=== PATIENT | female | born 1980 | race Caucasian/White ===

== ENCOUNTER 2020-12-16 07:38 | Emergency (ER) | payer OTHER ==
[~2020-12-16] VITALS: Ht 152.4 cm; Wt 81.2 kg
[~2020-12-16 07:38] MED LIST: BASAGLAR K100 UNIT/1; COZAAR100 MG PO; LANTUS SOL100 UNIT/1 SUB-Q; METFORMIN HCL500 MG PO; TOPROL XL50 MG PO
[2020-12-16] MEDS ORDERED: ATORVASTATIN CA40 MG PO (07:55)
[2020-12-16] MEDS ORDERED: AMLODIPINE BESY10 MG PO (08:45)
[2020-12-16] MEDS ORDERED: METOPROLOL SUC200 MG PO (08:46)
[2020-12-16] MEDS ORDERED: CHANTIX1 MG PO (08:48)
[2020-12-16] MEDS ORDERED: ONDANSETRON ODT8 MG PO (09:01)
[2020-12-16] MEDS ORDERED: MAGNESIUM250 MG PO (09:01)
== END 2020-12-16 09:32 | disposition home or self-care (01) ==
LOC: ED 07:38
DX: K52.9 Noninfective gastroenteritis and colitis, unspecified (principal); E83.42 Hypomagnesemia; I10 Essential (primary) hypertension; E11.9 Type 2 diabetes mellitus without complications; F17.200 Nicotine dependence, unspecified, uncomplicated; Z88.2 Allergy status to sulfonamides; Z88.1 Allergy status to other antibiotic agents; Z79.899 Other long term (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; Z79.4 Long term (current) use of insulin
CPT/HCPCS: 80053; 81001; 83735; 85025; 96374; 96375; 99284-25; J2405; J3475; J7030; U0003

== ENCOUNTER 2021-05-28 12:49 | Emergency (ER) | payer OTHER ==
[~2021-05-28] VITALS: Ht 152.4 cm; Wt 82.5 kg
[~2021-05-28 12:49] MED LIST changes: +AMLODIPINE BESY10 MG PO; +ATORVASTATIN CA40 MG PO; +CHANTIX1 MG PO; +MAGNESIUM250 MG PO; +METOPROLOL SUC200 MG PO; +ONDANSETRON ODT8 MG PO
--- OUTSIDE RECORDS SUMMARY | 2021-05-28 12:52 | XMS ---
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 EDaisy VISIT COUNT (12 MO.) 2 KATHRYN Conner TOTAL 2 NOTE: Visits indicate total known visits. 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
[2021-05-28] MEDS ORDERED: HYDROCODON-ACE1 EA11 PO (14:04)
[2021-05-28] MEDS ORDERED: CLEOCIN HCL300 MG PO (14:04)
== END 2021-05-28 14:02 | disposition home or self-care (01) ==
LOC: ED 12:49
DX: K04.7 Periapical abscess without sinus (principal); E11.65 Type 2 diabetes mellitus with hyperglycemia; I10 Essential (primary) hypertension; F17.200 Nicotine dependence, unspecified, uncomplicated; Z88.2 Allergy status to sulfonamides; Z88.1 Allergy status to other antibiotic agents
CPT/HCPCS: 99282; A9270

== ENCOUNTER 2021-08-23 15:33 | Emergency (ER) | payer OTHER ==
[~2021-08-23] VITALS: Ht 152.4 cm; Wt 82.5 kg
[~2021-08-23 15:33] MED LIST changes: +CLEOCIN HCL300 MG PO; +HYDROCODON-ACE1 EA11 PO
--- OUTSIDE RECORDS SUMMARY | 2021-08-23 15:36 | XMS ---
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 EDaisy VISIT COUNT (12 MO.) 3 KATHRYN Conner TOTAL 3 NOTE: Visits indicate total known visits. ED/UCC VISIT TRACKING (12 MO.) 08/23/2021 15:34 KATHRYN Banegas OR TYPE: Emergency COMPLAINT: - DIFF BREATHING, SHARP PAINS, DIZZY 05/28/2021 12:50 KATHRYN Banegas OR TYPE: Emergency COMPLAINT: - R SIDE MOUTH/EAR PAIN DIAGNOSES: - Periapical abscess without sinus - Other specified disorders of teeth and supporting structures - Allergy status to sulfonamides - Essential (primary) hypertension - Nicotine dependence, unspecified, uncomplicated - Allergy status to other antibiotic agents - Type 2 diabetes mellitus with hyperglycemia 12/16/2020 07:39 KATHRYN Banegas [place] TYPE: Emergency COMPLAINT: - NAUSEA, BODY ACHES DIAGNOSES: - Nicotine dependence, unspecified, uncomplicated - Allergy status to other antibiotic agents - Other group home (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 - Allergy status to sulfonamides - Diarrhea, unspecified - Essential (primary) hypertension - Hypomagnesemia - Type 2 diabetes mellitus without complications - Noninfective gastroenteritis and colitis, unspecified - halfway (current) use of insulin INPATIENT VISIT TRACKING (12 MO.) No inpatient visits to display in this time frame [id number]
[2021-08-23] MEDS ORDERED: INSULIN AS100 UNIT/3 SUB-Q (16:00)
[2021-08-23] MEDS ORDERED: BASAGLAR K100 UNIT/1 SUB-Q (16:00)
[2021-08-23] MEDS ORDERED: VENTOLIN HFA18 GM INH (16:01)
[2021-08-23] MEDS ORDERED: BENZONATATE100 MG PO (16:01)
[2021-08-23] MEDS ORDERED: PANTOPRAZOLE SO40 MG PO (16:02)
[2021-08-23] MEDS ORDERED: LOSARTAN-HCTZ1 EAC2 PO (16:02)
--- NOTE | 2021-08-23 22:32 | EKG ---
[facility] [address] [place], [place] [address] Signed Sinus tachycardia Anteroseptal infarct , age undetermined Abnormal ECG No previous ECGs available Confirmed by NATHALY ODONNELL MD ([id number]) on 08/23/2021 10:32:32 PM Electronically Signed By: NATHALY ODONNELL MD 08/23/212231 PATIENT NAME: JOSÉ MANUEL LUCAS Electrocardiogram DATE OF : 80 PHYSICIAN: NATHALY ODONNELL MD REPORT #: [id number] REPORT IS CONFIDENTIAL AND NOT TO BE RELEASED WITHOUT AUTHORIZATION
== END 2021-08-23 20:19 | disposition home or self-care (01) ==
LOC: ED 15:33
DX: B34.9 Viral infection, unspecified (principal); E86.0 Dehydration; R19.7 Diarrhea, unspecified; I10 Essential (primary) hypertension; E11.9 Type 2 diabetes mellitus without complications; F17.200 Nicotine dependence, unspecified, uncomplicated; Z20.822 Contact with and (suspected) exposure to COVID-19; Z88.2 Allergy status to sulfonamides; Z79.4 Long term (current) use of insulin; Z79.899 Other long term (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
CPT/HCPCS: 80053; 83880; 84484; 85025; 85379; 93005; 93010; 99285-25; C9803; J7030; U0003

== ENCOUNTER 2021-09-13 17:05 | Inpatient (IN) | payer OTHER ==
[~2021-09-13] VITALS: Ht 152.4 cm; Wt 82.9 kg
[~2021-09-13 17:05] MED LIST changes: +BASAGLAR K100 UNIT/1 SUB-Q; +BENZONATATE100 MG PO; +INSULIN AS100 UNIT/3 SUB-Q; +LOSARTAN-HCTZ1 EAC2 PO; +PANTOPRAZOLE SO40 MG PO; +VENTOLIN HFA18 GM INH
--- OUTSIDE RECORDS SUMMARY | 2021-09-13 17:06 | XMS ---
PreManage Notification: JOSÉ MANUEL LUCAS Security Lead Setter Events No recent Security Events currently on file CRITERIA MET - [facility] - [facility]its in 30 Days [facility] MARZENA BELTRE Nurse Practitioner: 08/24/2021-Current PHONE: [phone] Vanessa Ziegler Community Health Worker 03/13/2020-Current PHONE: [phone] Cesar has no Care Guidelines for this patient. E.D. VISIT COUNT (12 MO.) [address] [place] [address] TOTAL 4 NOTE: Visits indicate total known visits. 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 - Allergy status to sulfonamides - Type 2 diabetes mellitus without complications - Dehydration - Fever, unspecified - Diarrhea, unspecified - Viral infection, unspecified 05/28/2021 12:50 KATHRYN Banegas [place] TYPE: Emergency [...] status to other antibiotic agents - Other terminal operations supervisor (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 - Allergy status to sulfonamides - Diarrhea, unspecified - Essential (primary) hypertension - Hypomagnesemia - Type 2 diabetes mellitus without complications - Noninfective gastroenteritis and colitis, unspecified - [facility] (current) use of insulin INPATIENT VISIT TRACKING (12 MO.) No inpatient visits to display in this time frame [id number]
--- NOTE | 2021-09-13 23:07 | NUR ---
ON 3L NC, LUNGS COARSE AND W WHEEZING. NO SOB NOTED WITH EXERTION. C/O FEELING VERY ANXIOUS, DR BILLINGS NOTIFIED AT THIS TIME AND NEW ORDERS FOR HYDROXYZINE 25MG PO Q6HPRN, DC'D IV MAG RIDER PT STATED THAT IT GAVE HER A RASH IN THE PAST, CHANGED TO PO MAGNEIUM OXIDE 800MG X1. PT COOP WITH ADMIT ASSESSMENT RED HUED SKIN TO ARMS AND LE. SL PATENT
--- NOTE | 2021-09-13 23:48 | NUR ---
DR BILLINGS NOTIFIED VIA PHONE R/T PTS 408 CBG, SOLUMEDROL DOSAGE CLARIFIED. "START IN AM
--- NOTE | 2021-09-14 00:43 | NUR ---
On 3LNC, no distress, eyes closed, hob elevated, call light and lfuids at bedside, on aerosol precautions
--- NOTE | 2021-09-14 02:20 | NUR ---
RESATING, HOB ELEVATED, EYES CLOSED, O2 3LNC, CALL LIGHT AND FLUDIS AT BEDSIDE
--- NOTE | 2021-09-14 03:16 | NUR ---
coop with assessment, up to br, sob with exertion noted on return. O2 3LNC, lungs with insp and exp wheezing, increased resp rate too, back to bed and it took her a few seconds to recuperate. turns abd repositions self. voided large amounts of yellow urine, tolerating liquids well, no emesis
--- NOTE | 2021-09-14 05:46 | NUR ---
ON 3L NC. LUNGS WITH INSP/EXP WHEEZING, SOB WITH EXERTION PRESENT. DESSATED TO 85% ON RETURN FROM BR. SL PATENT, GETS SOLUMEDROM IV AND NEBS. TURNS AND REPOSITIONS SELF IN BED. VOIDING QS YELLOW URINE, NO BM SINCE ADMISSION. TOLERATING LARGE AMOUNTS OF FLUIDS. NO EMESIS. WAS C/O ANXIETY ON ADMIT RECEIVED HYDROXYZINE 25MG PO, EFFECTIVE, RECEIVED 2 DOSES OF K+ 30MeQ , AND MAGNESIUM OXIDE 800MG PO X1. PT HAS BEEN COOPERATIVE, ALERT AND ORIENTED. USES CALL LIGHT, ON AEROSOL PRECAUTIONS
--- NOTE | 2021-09-14 07:30 | NUR ---
REPORT RECIEVED FROM EMELIA ROTIZ. PT ASLEEP LAYING ON HER SIDE.
--- NOTE | 2021-09-14 08:38 | NUR ---
PT SITTING UP IN CHAIR EATING BREAKFAST. PRETTY SOB WITH EATING. 89% ON 3LNC. WILL PUT BUBBLER ON FOR HUMIDIFICATION. PT STATES SHE HAS NEVER HAD LUNG PROBLEMS BEFORE. WOULD LIKE TO BE TESTED FOR COVID AGAIN SHE BELIEVES IT MAY BE FALSE NEGATIVE.
--- NOTE | 2021-09-14 09:10 | NUR ---
PT LUNG SOUNDS COARSE, CRACKLES AND WHEEZY THROUGHOUT. HACKING COUGH. TIRED AND SOB WITH ANY EXERCTION.
--- NOTE | 2021-09-14 09:23 | NUR ---
RAPID COVID TEST DONE PER DR ORDER. COVID TEST COLLECTED FROM BOTH NARES W/O ISSUE. PT TOLERATED WELL.
--- NOTE | 2021-09-14 10:48 | NUR ---
Patient vitals I&Os are complete. Call light is in reach. Patient's resperations were 28. Patient was encouraged to relax and take deep breaths. RN will be notified.
--- NOTE | 2021-09-14 11:38 | NUR ---
ADMINISTERED JOY WANG AND INFORMED PT COVID TEST WAS NEG AGAIN. SHE STATES THAT SHE AGAIN DOES NOT BELIEVE IT.
--- NOTE | 2021-09-14 11:39 | NUR ---
Patient recieved a warm blanket and a warm wash cloth. Patient was active in washing her face and putting on deoderant. Patient said she is nervous about moving from the chair to the bathroom and back because of her oxygen level. Patient has been focusing on taking deep breaths.
--- NOTE | 2021-09-14 11:42 | NUR ---
Patient said she may want to take a shower today and said her friend will be dropping off some clean clothes to her today. Supplies will be set up for a shower in case she wants a shower. Patient was encouraged to call MANAGER PROGRAM MANAGEMENT when she is ready for SBA.
--- NOTE | 2021-09-14 12:28 | NUR ---
Shower supplies was set up in the room. 2 RNs and 1 Respiratory professional is in the room.
--- NOTE | 2021-09-14 13:44 | NUR ---
Patient said she is okay without the shower for now and wants to focus on her breathing and keeping her oxygen level up instead. She also said that her friend will be her in a couple of hours. Call light is in reach.
--- NOTE | 2021-09-14 13:53 | NUR ---
Call light is in reach. Patient is comfortable.
--- NOTE | 2021-09-14 13:58 | NUR ---
PT LAYING IN BED, RESTING ON R SIDE. PT IS ALERT, ORIENTED AND PLEASANT. PT STATED SHE WOULD LIKE TO SLEEP-HASN'T BEEN ABLE TO. COVID TEST NEG-PT SEEMED PLEASED. HAS FAMILY COMING FOR T.GIVING AND WAS DECORATING HOME. PT REQUESTED PRAYER, GAVE G.POST AND BLESSING. WILL FOLLOW
--- NOTE | 2021-09-14 14:54 | NUR ---
Patient denies questions or concerns at this time. Patient plans to discharge home with adult friend and six year old son. She has an adult son in town that also can assist her with her home care needs. She expresses no concerns for obtaining medications, food, or other home care needs.
--- NOTE | 2021-09-14 16:11 | NUR ---
PT TURNED UP TO 5LNC TO KEEP SATS IN THE 90'S. PT STATES SHE FEELS HORRIBLE AND FEELS EXTREMELY SOB JUST SITTING IN BED. EXPLAINED PRONING AND SIDE LAYING AND PT AGREED TO DO IT.
--- NOTE | 2021-09-14 18:11 | NUR ---
Patient is on her side in bed. Patient is comfortable. Call light is in reach.
--- NOTE | 2021-09-14 19:35 | NUR ---
REPORT RECEIVED FROM EMELIA ZURITA. pt RESTING IN BED. 5L OXYGEN BY NC IN PLACE.
--- NOTE | 2021-09-14 21:09 | NUR ---
pt RESTING IN BED, COUGHING. UP TO RESTROOM INDEPENDENTLY. PER pt, SPO2 88% ON 5L OXYGEN BY NC WHEN BACK TO BED. URINE HAT EMPTIED. ASSESSMENT COMPLETE. EXPIRATORY WHEEZES THROUGHOUT LUNG LOBES. 5L OXYGEN BY NC IN PLACE. PRN COUGH MEDICATION ADMINISTERED, PRN ANXIETY MEDICATION ADMINISTERED REQUESTED. CALL LIGHT IN REACH. NO ADDITIONAL REQUESTS.
--- NOTE | 2021-09-14 22:02 | NUR ---
IN pt ROOM FOR MEDICATION ADMINISTRATION. pt STATES KING IS STILL THERE "IT WON'T GO AWAY". ICE WATER REFILLED AND IN REACH. SCHEDULED MEDICATION ADMINISTERED. CALL LIGHT IN REACH.
--- NOTE | 2021-09-15 00:32 | NUR ---
CHECKED ON pt. RESTING IN BED. NO DISTRESS NOTED.
--- NOTE | 2021-09-15 02:40 | NUR ---
pt RESTING IN BED. LIGHTS OFF IN ROOM. NO DISTRESS NOTED.
--- NOTE | 2021-09-15 06:05 | NUR ---
pt AWAKE RESTING IN BED. VSS. 5L OXYGEN BY NC IN PLACE. SPO2 WNL. LUNG SOUNDS DIMINISHED, pt STATES FEELS TIGHT, EXPIRATORY WHEEZES AUSCULTATED. pt REFUSES PRN NEB TREATMENT OFFERED. DENIES NEED FOR PRN COUGH MEDICATION. C/O KING. PRN PAIN MEDICATION ADMINISTERED. CALL LIGHT IN REACH. ICE WATER PROVIDED.
--- NOTE | 2021-09-15 07:10 | NUR ---
Report received from Kallie KAPOOR. Pt resting in bed with no needs at this time, will continue plan of care
--- NOTE | 2021-09-15 07:45 | NUR ---
PT INDEPENDANT IN THE ROOM. PT UP TO CHAIR. WARM BLANKET AND COFFEE GIVEN. BATHROOM SET UP FOR A SHOWER LATER. CALL LIGHT WITHIN REACH. WHITE BOARD UPDATED. NO FURTHER NEEDS AT THIS TIME.
--- NOTE | 2021-09-15 12:30 | NUR ---
Scheduled medications administered, CBG checked at at 397, MD notified. SS and scheduled insulin administered per order.
--- NOTE | 2021-09-15 12:43 | NUR ---
PT SITTING UP IN CHAIR-ALERT, ORIENTED AND EATING LUNCH. LET PT CONTINUE HER LUNCH. PT STATED SHE DOESN'T REALLY FEEL MUCH BETTER. GAVE ENCOURAGEMENT AND BLESSING. WILL CONTINUE TO FOLLOW
--- NOTE | 2021-09-15 13:38 | NUR ---
PATIENT IN CHAIR WATCHING TV. VITALS AND I&O'S CHARTED. CALL LIGHT IN REACH. NO FURTHER NEEDS AT THIS TIME.
--- NOTE | 2021-09-15 14:30 | NUR ---
Meds administered, pt resting in bed, talking with CM Keesha. Continues to have dry cough, denies PRN cough medication as she would "like to cough everything up and out". on 5L O2 NC tolerating well. No further needs at this time
--- NOTE | 2021-09-15 15:23 | NUR ---
Spoke with Ana. She cont. on oxygen and sounds congested. States son and family had covid 2 weeks ago as well as several people she works with at [employer]. Covid test was negative. Complaint of headache. Lives with friend and son will assist her when she is discharged if needed. Discussed may need 02 on dc and she would like either [facility] or [facility] for 02. Denies other needs.
[2021-09-15] MEDS ORDERED: AMLODIPINE BESYL5 MG PO (16:23)
--- NOTE | 2021-09-15 17:00 | NUR ---
Meds administered, pt resting in bed after eating, no needs at this time
[2021-09-15] MEDS ORDERED: PANTOPRAZOLE SO40 MG PO (17:34)
--- NOTE | 2021-09-15 17:36 | NUR ---
Medications reconciled using pharmacy records and patient interview
--- NOTE | 2021-09-15 19:25 | NUR ---
REPORT RECEIVED FROM EMELIA CASTELLANOS. pt RESTING IN BED, LIGHTS OFF IN ROOM. NO REQUESTS AT THIS TIME.
--- NOTE | 2021-09-15 19:58 | NUR ---
CALL LIGHT ANSWERED. pt COMPLAINS OF KING PAIN, "THE MEDICATIONS DID NOT WORK". REQUESTING ADDITIONAL MEDICATION. PHONE CALL TO MD. LIN TO PLACE ORDER.
--- NOTE | 2021-09-15 20:55 | NUR ---
V/S AND I&O DONE. BLOOD SUGAR CHECKED. ICE WATER REFILLED. EMPTIED HAT WITH 200ML VOIDINGS.
--- NOTE | 2021-09-15 21:07 | NUR ---
PRN PAIN MEDICATION ADMINSITERED FOR 8/ REPORTED HEADACHE. SCHEDULED MEDICATIONS ADMINISTERED. ASSESSMENT COMPLETE. EXPIRATORY WHEEZES AUSCULTATED, COARSENESS UPPER LOBES BILATERALLY. URINE EMPTIED. VSS. 5L OXYGEN BY NC IN PLACE. ICE WATER AND WARM BLANKET PROVIDED. CALL LIGHT IN REACH.
--- NOTE | 2021-09-15 23:09 | NUR ---
CHECKED ON pt. RESTING IN BED ON LEFT SIDE. BREATHING UNLABORED. 5L OXYGEN BY NC IN PLACE. NO DISTRESS NOTED.
--- NOTE | 2021-09-16 01:51 | NUR ---
pt LYING IN BED ON LEFT SIDE. BREATHING UNLABORED. NO DISTRESS NOTED.
--- NOTE | 2021-09-16 03:00 | NUR ---
pt RESTING IN BED. LIGHTS OFF IN ROOM. NO DISTRESS NOTED.
--- NOTE | 2021-09-16 06:15 | NUR ---
PT LYING IN BED ON RIGHT SIDE COUGHING. COMPLAINS OF 7/10 KING. PRN PAIN MEDICATIONS ADMINISTERED. ASSESSMENT COMPLETE. EXPIRATORY WHEEZES THROUGHOUT LUNG LOBES, COARSENESS LEFT LOWER LUNG LOBE. pt DENIES BREATHING TREATMENT. STATES "NOT YET, I DON'T WANT TO MAKE MY KING WORSE." SPO2 93% WITH 5L OXYGEN BY NC IN PLACE. URINE EMPTIED. UP TO BSC FOR VOID AND BACK TO BED. COOL CLOTH PROVIDED FOR FOREHEAD. LIGHTS OFF IN ROOM.
--- NOTE | 2021-09-16 07:16 | NUR ---
Report received from Kallie KAPOOR. Pt resting in bed, no needs at this time. Call light in reach. Will continue plan of care
--- NOTE | 2021-09-16 08:00 | NUR ---
CBG checked, >300, pt states continuing to have 8/10 headache pain. She is concerned that her lungs "feel worse" and SOB with exertion, states anxious regarding current illness. Discussed plan of care, will return with medications
--- NOTE | 2021-09-16 08:30 | NUR ---
SS insulin and scheduled medications administered along with nicotine lozenge, PRN vistaril. PRN toradol/tylenol not currently available. Hot pack provided to attempt to relieve headache pain, ice pack not effective per pt. Pt remains on 5L O2 with SPO2 >92%. Discussed with patient plan of care, ABX, pain control. Water refreshed, call light in reach
--- NOTE | 2021-09-16 08:47 | NUR ---
PT O2 WAS 92 ON 5L NC BEFORE UP TO RESTROOM AND IS CURRENTLY 82 ON 5L NC WHILE GETTING BACK TO CHAIR. EMELIA CASTELLANOS NOTIFIED. O2 MAIRA BACK UP TO 93 WITHIN 20 SECONDS OF SITTING IN CHAIR.
--- NOTE | 2021-09-16 09:00 | NUR ---
Pt to CT
--- NOTE | 2021-09-16 09:05 | NUR ---
PT SEEMS TO BE DOING A LITTLE BETTER. PT HAS NOT COUGHED YET WHILE THIS MANAGER MATH HAS BEEN IN THE ROOM. PT NOW GETTING LABS DRAWN. CALL LIGHT WITHIN REACH, NO FURTHER NEEDS AT THIS TIME. FRESH WATER BROUGHT
--- NOTE | 2021-09-16 10:00 | NUR ---
Pt provided with PRN tylenol for 07/17 headache
--- NOTE | 2021-09-16 12:30 | NUR ---
Scheduled medications administered, IV ABX infusing WNL, pt c/o pain and lights dimmed, cool cloth given.
--- NOTE | 2021-09-16 12:50 | NUR ---
Spoke with Ana, she is not feeling well. Sitting with ice pack on her head and c/o severe headache. Pt is near tears. Denies need to notify nurse as she is aware and it is not time for pain meds.
--- NOTE | 2021-09-16 13:11 | NUR ---
PT SITTING UP IN CHAIR, WATCHING TV, O2 NC IN USE. PT SAID SHE SLEPT WELL, BUT WOKE UP AND TODAY SO FAR HAS BEEN DIFFICULT. GAVE ENCOURAGEMENT, RIVKA AND HAD PRAYER WITH PT. WILL FOLLOW
--- NOTE | 2021-09-16 13:35 | NUR ---
Rounded on patient who is sitting up in chair and watching tv. States no immediate needs. On 5L O2 NC. Lunch tray cleared. Call light in reach
--- NOTE | 2021-09-16 13:58 | NUR ---
PT SITTING IN CHAIR. PT JUST FINISHED DOING AN INDEPENDENT BB. FRESH HOT PACK AND COFFEE BROUGHT. CALL LIGHT WITHIN REACH, NO FURTHER NEEDS AT THIS TIME.
--- NOTE | 2021-09-16 15:00 | NUR ---
IV magnesium infusing WNL. 10mg PRN oxycodone administered for 9/10 headache pain. Pt states no further needs at this time, son Alberto at bedside
--- NOTE | 2021-09-16 16:25 | NUR ---
sputum sample collected sent to in-house lab, rapid pcr sent to inhouse lab, as well as senmd out swab for various viral panel.
--- NOTE | 2021-09-16 17:53 | NUR ---
PT SEEMS TO BE DOING BETTER. PT AGREES THAT THEY ARE FEELING BETTER. PT IMPATIENTLY AWAITING DINNER. CALL LIGHT WITHIN REACH, NO FURTHER NEEDS AT THIS TIME
--- NOTE | 2021-09-16 19:56 | NUR ---
RECEIVED REPORT FROM DAY SHIFT RN. PATIENT IS RESTING IN BED. PATIENT DENIES ANY NEEDS. CALL LIGHT IN REACH.
--- NOTE | 2021-09-16 21:38 | NUR ---
PATIENT ASSESMENT COMPLETED. PATIENTS SCHEDULED MEDICATIONS GIVEN PER ORDER. PATIENT REPORTS KING AT 8/10 AND PRN MEDICATION GIVEN PER ORDER. PATIENTS IV FLUSHED AND SL. PATIENT REMAINS ON 5L VIA NC. PATIENT DENIES ANY FURTHER NEEDS. CALL LIGHT IN REACH.
--- NOTE | 2021-09-16 23:34 | NUR ---
PATIENT IS RESTING IN BED ON PHONE. PATIENT DENIES ANY NEEDS. CALL LIGHT IN REACH.
--- NOTE | 2021-09-17 02:03 | NUR ---
PATIENT IS RESTING IN BED WITH EYES CLOSED, RR 19. CALL LIGHT IN REACH.
--- NOTE | 2021-09-17 04:12 | NUR ---
PATIENT IS RESTING IN BED WITH EYES CLOSED, RR 16. CALL LIGHT IN REACH.
--- NOTE | 2021-09-17 06:25 | NUR ---
VITALS TAKEN AND RECORDED. PATIENT DENIES A HEADACHE AT THIS TIME. ICE WATER REFILLED. PATIENT TITRATED TO 4L VIA NC. PATIENT DENIES ANY NEEDS. CALL LIGHT IN REACH.
--- NOTE | 2021-09-17 08:00 | NUR ---
Report received from EMELIA Stack, pt resting in bed safely w/ call light in reach and eyes closed, RR even and unlabored on 4L O2 via NC.
--- NOTE | 2021-09-17 10:00 | NUR ---
Pt sitting up in bed w/ call light in reach. Morning assesment complete and scheduled meds given per provider orders. Pt denies any needs at this time VSS on 4L O2 via NC
--- NOTE | 2021-09-17 12:00 | NUR ---
Pt sitting up in chair w/ call light in reach, eating lunch, no needs at this time.
--- NOTE | 2021-09-17 12:10 | NUR ---
Spoke with Ana. She states she plans on dc home when feeling better. Cont. to not feel well and requires nebulizer tx and 024l. Pt asks for paper and pen as she wants to make a list for Thanksgiving dinner.
--- NOTE | 2021-09-17 13:52 | NUR ---
PT SITTING IN CHAIR-O2 NC IN USE. PT HASN'T BEEN ABLE TO REST MUCH-GAVE BLESSING AND WILL LET HER REST. WILL CONTINUE TO FOLLOW
--- NOTE | 2021-09-17 14:00 | NUR ---
Pt sitting up in chair talking with case management, no needs at this time, call light w/ in reach.
--- NOTE | 2021-09-17 16:00 | NUR ---
Pt sitting up in chair w/ call light in reach. Pt denies any needs at this time, O2 sats 95% on 4L
--- NOTE | 2021-09-17 19:10 | NUR ---
SHIFT REPORT RECEIVED FROM DAYSHIFT EMELIA AUSTIN AT BEDSIDE, pt AWAKE AND RESTING IN BED. TITRATED FROM 4 TO 3LNC, SPO2 SUSTAINING IN MID TO UPPER 90'S, NO DISTRESS NOTED. pt DENIES ADDITIONAL NEEDS AFTER FRESH WATER WAS PROVIDED. CALL LIGHT IN REACH AND BOARD UPDATED.
--- NOTE | 2021-09-17 21:40 | NUR ---
IN TO GET VITALS, ICE WATER FILLED, NO FURTHER NEEDS AT THIS TIME
--- NOTE | 2021-09-17 22:04 | NUR ---
ASSESSMENT COMPELTE, SCHEDULED MEDS GIVEN (SEE EMAR). pt A/OX4, VSS. pt REMAINS ON 3LNC, SPO2 WNL. pt RESTING IN BED, AWAKE. RR EVEN AND UNLABORED. pt DENIES PAIN AND NAUSEA. PRN ANXIETY MEDICATION ALSO PROVIDED, SEE EMAR. NO FURTHER NEEDS, CALL LIGHT IN REACH. pt INDEPENDENT IN ROOM.
--- NOTE | 2021-09-17 22:23 | NUR ---
SCHEDULED MED PROVIDED. IV WNL, FLUSHED WELL. NO OTHER NEEDS. CALL LIGHT IN REACH.
--- NOTE | 2021-09-18 01:07 | NUR ---
pt RESTING IN BED, EYES CLOSED. RR EVEN AND UNLABORED. pt REMAINS ON 3LNC, SPO2 CHECKED WITH RESULT OF 94%, HR IN UPPER 50'S. NO NEEDS VERBALIZED, CALL LIGHT IN REACH.
--- NOTE | 2021-09-18 04:01 | NUR ---
pt RESTING IN BED WITH EYES CLOSED, RR EVEN AND UNLABORED. 3LNC IN PLACE WITH HUMIDIFICATION, NO DISTRESS NOTED. pt APPEARS COMFORTABLE AND RELAXED, WILL CONTINUE TO MONITOR. CALL LIGHT IN REACH.
--- NOTE | 2021-09-18 05:34 | NUR ---
ASSESSMENT COMPLETE, NO ACUTE CHANGES. pt A/OX4, RATES PAIN TOLERABLE 6/10 R/T HEADACHE. DENIES NEED FOR PAIN MEDICATION AT THIS TIME, WILL MONITOR. pt TITRATED FROM 3LNC TO 2LNC, SPO2 SUSTAINING AT 93-94%. NO ADDITIONAL NEEDS, CALL LIGHT IN REACH.
--- NOTE | 2021-09-18 08:00 | NUR ---
Shift report recieved from EMELIA Reinoso, pt resting safely in bed w/ call light in reach and eyes closed, RR even and unlabored on 2L O2 via NC.
--- NOTE | 2021-09-18 10:00 | NUR ---
Pt sitting up in chair eating breakfast w/ call light in reach. Morning assesment complete, scheduled meds given, and IV abx infusing per provider orders. Pt denies any further needs at this time
[2021-09-18] MEDS ORDERED: LEVOFLOXACIN750 MG PO (10:16)
[2021-09-18] MEDS ORDERED: PREDNISONE20 MG PO (10:19)
--- NOTE | 2021-09-18 12:10 | NUR ---
PT IS SITTING IN CHAIR, DRESSED IN HER CLOTHES AND HAD HER PERSONAL BELONGINGS ALL BAGGED. SHE IS REALLY READY FOR DC. NO O2 NC IN USE. GAVE BLESSING WILL FOLLOW NEEDED
== END 2021-09-18 11:25 | disposition home or self-care (01) | DRG 193 ==
LOC: ED 17:05 → MS 17:06
PROVIDERS: ADMIT Internal Medicine; ATTEND Internal Medicine
DX: J12.9 Viral pneumonia, unspecified (principal); J96.01 Acute respiratory failure with hypoxia; J44.1 Chronic obstructive pulmonary disease with (acute) exacerbation; J44.0 Chronic obstructive pulmonary disease with (acute) lower respiratory infection; Z20.822 Contact with and (suspected) exposure to COVID-19; J01.10 Acute frontal sinusitis, unspecified; R91.8 Other nonspecific abnormal finding of lung field; E11.65 Type 2 diabetes mellitus with hyperglycemia; I10 Essential (primary) hypertension; F17.290 Nicotine dependence, other tobacco product, uncomplicated; E78.5 Hyperlipidemia, unspecified; Z88.2 Allergy status to sulfonamides; Z88.1 Allergy status to other antibiotic agents; Z90.710 Acquired absence of both cervix and uterus; Z90.49 Acquired absence of other specified parts of digestive tract; Z79.4 Long term (current) use of insulin; Z79.899 Other long term (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
CPT/HCPCS: 70450; 71045; 71046; 71260; 80048; 80053; 83036; 83735; 83880; 84703; 85007; 85025; 85651; 87040; 87070; 87205; 94640; 94667; 94668; 94760; 94761; 96372; 96376; 99285-25; A9270; C9803; G0378; J0696; J1650; J1815; J1885; J2550; J2920; J2930; J3475; Q0177; Q9967; U0003

== ENCOUNTER 2022-12-07 08:24 | Emergency (ER) | payer OTHER ==
[~2022-12-07] VITALS: Ht 152.4 cm; Wt 80.7 kg
[~2022-12-07 08:24] MED LIST changes: +AMLODIPINE BESYL5 MG PO; +GABAPENTIN600 MG PO; +LEVOFLOXACIN750 MG PO; +PREDNISONE20 MG PO
--- OUTSIDE RECORDS SUMMARY | 2022-12-07 08:27 | XMS ---
PreManage Notification: JOSÉ MANUEL LUCAS Security Rn Cardiac Rehab Events No recent Security Events currently on file CRITERIA MET - [facility] PROVID[facility] DORIS LUCASQUELINE Physician Leveler 09/14/2021-Current PHONE: Unknown Tricia Gonzales-Casey Nurse Practitioner: 08/24/2021-Current PHONE: [phone] Vanessa Ziegler Community Health Worker 03/13/2020-Current PHONE: [phone] Cesar has no Care Guidelines for this patient. E.D. VISIT COUNT (12 MO.) 1 KATHRYN Conner TOTAL 1 NOTE: Visits indicate total known visits. ED/UCC VISIT TRACKING (12 MO.) 12/07/2022 08:25 KATHRYN Banegas [place] TYPE: Emergency COMPLAINT: - SOB, CONGESTION INPATIENT VISIT TRACKING (12 MO.) No inpatient visits to display in this time frame [email or web address]
[2022-12-07] MEDS ORDERED: ZITHROMAX250 MG PO (11:31)
[2022-12-07] MEDS ORDERED: DIFLUCAN150 MG PO (11:35)
== END 2022-12-07 11:50 | disposition home or self-care (01) ==
LOC: ED 08:24
DX: J06.9 Acute upper respiratory infection, unspecified (principal); J45.909 Unspecified asthma, uncomplicated; I10 Essential (primary) hypertension; E11.9 Type 2 diabetes mellitus without complications; F17.200 Nicotine dependence, unspecified, uncomplicated; Z88.2 Allergy status to sulfonamides; Z79.899 Other long term (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; Z79.4 Long term (current) use of insulin; Z20.822 Contact with and (suspected) exposure to COVID-19
CPT/HCPCS: 71045; 87502; 94640; 94664; 99284-25; U0003

== ENCOUNTER 2023-11-29 10:30 | Inpatient (IN) | payer OTHER ==
[~2023-11-29] VITALS: Ht 152.4 cm; Wt 74.1 kg
[2023-11-29] VITALS (9 sets, daily range): BP systolic 132–150; BP diastolic 72–91
[~2023-11-29 10:30] MED LIST changes: -AMLODIPINE BESYL5 MG PO; +DIFLUCAN150 MG PO; +ZITHROMAX250 MG PO
[2023-11-29 11:07] LABS: BILIRUBIN, URINE POSITIVE (negative); BLOOD/HGB, URINE NEGATIVE (Negative); KETONE, URINE NEGATIVE (Negative); LEUK ESTERASE, URINE NEGATIVE (negative); NITRITE, URINE NEGATIVE (negative)
[2023-11-29 11:17] LABS: BACTERIA, URINE 1+ /hpf (negative); CASTS, URINE NONE SEEN \\lpf; CRYSTALS, URINE NONE SEEN (0-1+); EPITHELIAL CELLS, URINE SQUAMOUS 2+ /lpf (0-1+); RED BLOOD CELLS, URINE 0-1 /hpf (0-5); REFLEX CULTURE, URINE No (No); WHITE BLOOD CELLS, URINE 0-1 /HPF (0-5)
[2023-11-29 11:17] LABS: BASOPHILS 0.9 % (0-2); HEMOGLOBIN 16.6 g/dL (12.0-18.0); LYMPHOCYTES 19.4 % (24-44); MCH 31.8 (27-36); MCHC 35.3 g/dl (30-36); MCV 90.1 fl (81-99); MONOCYTES 7.4 % (0-12); NEUTROPHILS 70.3 % (39-80); PLATELET COUNT 226 K/uL (140-440); RBC 5.22 M/ul (4.3-5.7); RDW 13.1 (10.5-15.0)
[2023-11-29 11:18] LABS: COLLECTION TYPE, URINE CLEAN CATCH
[2023-11-29 11:36] LABS: ALBUMIN 4.1 g/dL (3.4-5.0); ALBUMIN/GLOBULIN RATIO 1.11 (1.1-2.4); ANION GAP 12.9 (7-21); BILIRUBIN, TOTAL 0.6 ng/dL (0.2-1.0); BUN/CREATININE RATIO 20.2 (6.0-28.6); CALCIUM 9.5 mg/dL (8.5-10.1); CREATININE, SERUM 0.99 mg/dL (0.55-1.02); POTASSIUM 2.9 mmol/L (3.5-5.1); PROTEIN, TOTAL 7.8 g/dL (6.4-8.2)
--- NOTE | 2023-11-29 14:00 | NUR ---
43 YEAR OLD FEMALE PATIENT ADMITTED TO ROOM 128 HOUSE CONVENIENCE PATEINT WITH DX OF ETOH ABUSE, POSSIBLE ETOH WITHDRAWAL, LYTE INBALANCE, N/V/D. REPORT RECEIVED FROM ED RN. UPON ADMIT PATIENT IS DROWSY BUT ALERT AND COOPERATIVE. C/O KING. STATES SHE HAS HAD A KING FOR SEVERAL WEEKS. SHE WAS DX WITH FLU A+ ON 11/16/23. HAS HAD OCC PORDUCTIVE COUGH. LUNGS DIM. DENIES CHEST PAIN. C/O MID UPPER EPIGASTRIC PAIN, WITH DIFFUE ABD PAIN WITH PALPATION. PT IS A CURRENT EVERY HARD ALCOHOL DRINKER OF 12-14 SHOTS Q DAY. PATIENT HAS BEEN WITH N/V/D FOR THE PAST 3 WEEKS. HX OF DM 2,HTN,HYSTERECTOMY, CHOLEY. IVF INFUSING. ADMISSION PROCESS STARTED.
--- NOTE | 2023-11-29 15:30 | NUR ---
Spoke briefly with Ana. She is very sleepy, but agrees to answer questions. She lives with her SO and her 9 yo son in [place]. She works at [employer] and drives. She does not use any DME. Per H&P pt drinks 13-14 shots per day. She does not respond when I ask if she is interested in stopping alcohol use. Pt denies financial issues. Will follow up with pt tomorrow for further needs when she is not so sleepy.
--- NOTE | 2023-11-29 15:42 | NUR ---
PATIENT IS CALM AND RESTING. LABS DRAWN.
--- NOTE | 2023-11-29 15:48 | NUR ---
DR. BLANCO CALLED TO CLARIFY SOME ORDERS. LABS TO BE DRAWN.
[2023-11-29 15:54] LABS: ANION GAP 12.1 (7-21); BUN/CREATININE RATIO 23.07 (6.0-28.6); CALCIUM 8.2 mg/dL (8.5-10.1); CREATININE, SERUM 0.78 mg/dL (0.55-1.02); MAGNESIUM 1.7 mg/dL (1.8-2.4); POTASSIUM 3.1 mmol/L (3.5-5.1)
--- NOTE | 2023-11-29 16:20 | NUR ---
Michael GRIFFIN RN, UPDATED DR. GARCIA ON CURRENT LAB VALUES, ORDERS RECEIVED TO GIVEN KCL 40 MEQ IV AND MAG 2 GM IV. PATIENT REMAINS CALM AND SLEEPY, DENIES CURRENT NEEDS. RESP ARE EQUAL AND NON-LABORED, CALL LIGHT IS WITHIN REACH.
--- NOTE | 2023-11-29 17:50 | NUR ---
AWAKE, FACE FLUSHED. OOT TO COMMODE TO VOID AND HAVE SMALL LIQUID STOOL. PATIENT IS STABLE ON FEET WITH TRANSFER TO COMMODE AND BACK TO BED. PATIENT STATES SHE FEEL ANXIOUS, NAUSEATED AND HAS A KING. RATES KING 05/16. PATEINT STATES ORA MAYBE IF SHE TRIES TO EAT SOMETHING SHE WILL FEEL BETTER.
--- NOTE | 2023-11-29 18:08 | NUR ---
ATIVAN 1 MG IV GIVEN. PATIENT IS SITTING UP IN BED ATTEMPTING TO EAT FEW BITES OF DINNER.
--- NOTE | 2023-11-29 18:44 | NUR ---
TOOK DINNER WELL. PATIENT CONTINUES WITH KING, ANXIETY AND AGITATION. ATIVAN 1 MG IV REPEATED.
--- NOTE | 2023-11-29 19:36 | NUR ---
RECEIVED REPORT FROM DAY SHIFT RN. PATIENT IS RESTING IN BED WITH EYES CLOSED, RR 18. IV INFUSING PER ORDER. CALL LIGHT IN REACH.
--- NOTE | 2023-11-29 20:18 | NUR ---
ATIVAN DRAWN FOR GISEL, DOLORES RN AND RASHAUN RN, WITNESSED WASTE OF 1MG AND ADMINISTERED 1MG, IN PYXIS THIS RN WASTE SECOND TIME, APPEARS ENTIRE VIAL WAS WASTED. DOCUMENTED APPROPRIATELY IN EMAR.
--- NOTE | 2023-11-29 20:45 | NUR ---
PATIENT ASSESMENT COMPLETED. PATIENT IS DROWSY BUT AWAKENS AND ANSWERS ALL QUESTIONS APPROPRIATELY. PATIENT IS AAOX4. PATIENTS CIWA IS NOTED TO BE 4 AND NO INTERVENTION AT THIS TIME PER PROTOCOL. PATIENTS BS AND SS ADMINISTERED PER ORDER. PATIENTS IV INFUSING PER ORDER. PATIENT REPORTS NAUSEA, PRN MEDS GIVEN PER ORDER. PATIENT DENIES ANY PAIN. PATIENT REPORTS A HEADACHE. PATIENT OFFERED INTERVENTION, PATIENT DENIES THE NEED. COOL WASH RAG PLACED ON PATIENTS FOREHEAD. PATIENT OFFERED BR, PATIENT DENIES THE NEED. PATIENTS LIGHTS IN ROOM TURNED DOWN. PATIENT DENIES ANY FURTHER NEEDS. CALL LIGHT AND BELONGINGS ARE WITHIN REACH.
--- NOTE | 2023-11-29 21:21 | NUR ---
PATIENT UP TO BSC A SBA. PATIENT REPORTS BEING SWEATY, NAUSEOUS, AND DIZZT WHEN UP. PATIENT ABLE TO VOID AND HAD SCANT BM. PATIENT IS BACK IN BED RESTING. PATIENT IS NOTED TO BE CLAMMY AND REPORTS A WORSENING HEADACHE. PATIENTS CIWA IS NOTED TO BE A 9. PATIENT GIVEN PRN MED PER PROTOCOL. PATIENT DENIES ANY FURTHER NEEDS. CALL LIGHT IN REACH. PATIENT REMAINS ON 2L VIA [place].
--- NOTE | 2023-11-29 22:35 | NUR ---
PATIENT IS RESTING IN BED WITH EYES CLOSED, RR 18. PATIENT APPEARS TO BE COMFORTABLE. CALL LIGHT IN REACH.
--- NOTE | 2023-11-29 23:28 | NUR ---
PATIENT REPORTS HEADACHE 05/16, PRN MEDCATION GIVEN PER ORDER. PATIENT STATED "I AM FIGHTING THE URGE TO DRINK". PATIENTS CIWA NOTED TO BE 10, PRN MEDICATION GIVEN PER PROTOCOL. PATIENT DENIES ANY NAUSEA. PATIENT GIVEN CRACKERS PER REQUEST. PATIENT DENIES ANY FURTHER NEEDS. CALL LIGHT IN REACH. BED ALARM ON FOR SAFETY.
[2023-11-30] VITALS (15 sets, daily range): BP systolic 122–167; BP diastolic 57–105
--- NOTE | 2023-11-30 01:05 | NUR ---
PATIENT IS RESTING IN BED WITH EYES CLOSED, RR 22. PATIENT APPEARS TO BE RESTING COMFORTABLE. CALL LIGHT IN REACH. BED ALARM ON FOR SAFETY.
--- NOTE | 2023-11-30 01:44 | NUR ---
PATIENT NOTED TO BE RESTLESS IN BED. PATIENTS CIWA NOTED TO BE 11, PRN MED GIVEN PER PROTOCOL. PATIENTS IV INFUSING PER ORDER. PATIENT PROVIDED CRACKERS PER REQUEST. PATIENT DENIES ANY FURTHER NEEDS. CALL LIGHT IN REACH. BED ALARM ON FOR SAFETY.
--- NOTE | 2023-11-30 03:28 | NUR ---
PATIENT IS NOTED TO BE RESTLESS IN BED. PATIENTS CIWA IS 13, PRN MEDS GIVEN PER PROTOCOL. LOC REPORTS A HEADACHE AT 6/10, PRN TYLENOL GIVEN PER ORDER. PATIENT PROVIDED WITH FRESH ICE WATER AND SALTINE CRACKERS. PATIENT UPDATED ON A PLAN OF CARE. PATIENT PROVIDED COOL WASH RAG FOR FOREHEAD. PATIENT DENIES ANY FURTHER NEEDS. CALL LIGHT IN REACH. IV INFUSING PER ORDER.
--- NOTE | 2023-11-30 04:16 | NUR ---
PATIENTS BED ALARM ALERTED STAFF. PATIENT ATTEMPTING TO GET TO COMMODE. PATIENT ASSISTED TO THE BSC A SBA. PATIENT ABLE TO VOID AND HAVE SMALL LOOSE BM. PATIEN IS BACK IN BED RESTING. PATIENT REPORTS NAUSEA, PRN MEDICATION GIVEN PER ORDER. PATIENT REPORTS IMPROVMENT IN HEADACHE. PATIENT DENIES ANY FURTHER NEEDS. CALL LIGHT IN REACH. BED ALARM ON FOR SAFETY. IV INFUSING PER ORDER.
--- NOTE | 2023-11-30 04:27 | NUR ---
PATIENTS BED ALARM ALERTED STAFF. PATIENT SITTING ON EDGE OF BED. PATIENT STATED "I NEED TO POOP AGAIN". PATIENT ASSISTED TO THE BSC A SBA. PATIENT HAD LOOSE SMALL BM. PATIENT COMPLETED SELF STANISLAV CARE. PATIENT IS BACK IN BED RESTING. PATIENT IS AAOX4. PATIENT DENIES ANY FURTHER NEEDS. CALL LIGHT IN REACH.
--- NOTE | 2023-11-30 05:25 | NUR ---
PATIENT ASSISTED TO THE BSC A SBA. PATIENT HAD SMALL LOOSE BM. PATIENT IS BACK IN BED RESTING. PATIENTS CIWA IS 10, PRN MEDS GIVEN PER PROTOCOL. PATIENT DENIES ANY FURTHER NEEDS. CALL LIGHT IN REACH. BED ALARM ON FOR SAFETY. IV INFUSING PER ORDER.
[2023-11-30 05:31] LABS: BASOPHILS 0.8 % (0-2); EOSINOPHILS 4.1 % (0-6); HEMATOCRIT 41.3 % (35.0-50.0); HEMOGLOBIN 14.3 g/dL (12.0-18.0); LYMPHOCYTES 27.1 % (24-44); MCH 32.1 (27-36); MCHC 34.7 g/dl (30-36); MCV 92.5 fl (81-99); MONOCYTES 7.7 % (0-12); NEUTROPHILS 60.3 % (39-80); PLATELET COUNT 161 K/uL (140-440); RBC 4.46 M/ul (4.3-5.7); RDW 12.9 (10.5-15.0)
[2023-11-30 05:38] LABS: ANION GAP 13.9 (7-21); BUN/CREATININE RATIO 16.43 (6.0-28.6); CALCIUM 7.6 mg/dL (8.5-10.1); CREATININE, SERUM 0.73 mg/dL (0.55-1.02); MAGNESIUM 1.4 mg/dL (1.8-2.4); POTASSIUM 2.9 mmol/L (3.5-5.1)
--- NOTE | 2023-11-30 06:48 | NUR ---
PLACED CALL TO MD TO REPORT ABNORMAL LAB VALUES. NEW ORDERS RECEIVED. ORDERS VERIFIED USING THE READBACK METHOD.
--- NOTE | 2023-11-30 07:02 | NUR ---
PATIENT IS RESTING IN BED WITH EYES CLOSED, RR 18. PATIENT APPEARS TO BE RESTING COMFORTABLY. PATIENTS IV MAG INFUSING PER ORDER. CALL LIGHT IN REACH. BED ALARM ON FOR SAFETY.
--- NOTE | 2023-11-30 07:25 | NUR ---
PATIENT ASSISTED TO THE BSC A SBA. PATIENT ABLE TO VOID AND HAVE SMALL LOOSE BM. PATIENT IS BACK IN BED RESTING. COFFEE AND ICE WATER PROVIDED. PATIENT DENIES ANY FURTHER NEEDS. CALL LIGHT IN REACH. IV INFUSING PER ORDER.
--- NOTE | 2023-11-30 07:30 | NUR ---
REPORT RECEIVED, CREATIVE ARTS MUSIC THERAPIST RN WITH PATIENT GIVING ATIVAN AND HANGING K RIDER.
--- NOTE | 2023-11-30 07:36 | NUR ---
PATIENTS CIWA IS NOTED TO BE 11, PRN MED PER PROTOCOL. PATIENT REQUESTING TYELNOL FOR HEADACHE, PRN MEDS GIVEN PER ORDER. PATIENT DENIES ANY FURTHER NEEDS. CALL LIGHT IN REACH. BED ALARM ON FOR SAFETY.
--- NOTE | 2023-11-30 08:00 | NUR ---
ASSESSMENT DONE. PATIENT IS CALM AT THIS TIME. TALKED WITH PATIENT ABOUT POC FOR DAY. INDICATES UNDERSTANDING.
--- NOTE | 2023-11-30 11:46 | NUR ---
CALL TO DR TO CONFIRM TESTS FOR STOOL ONLY C DIFF.
--- NOTE | 2023-11-30 12:30 | NUR ---
TOOK LUNCH FAIR. CONTINUES TO HAVE PERIODS OF NAUSEA. HAS BEEN UP TO BR AND CONNIDE TO VOID AND EXPELL SEVERAL MED-SMALL LIQID STOOLS. STOOL SENT TO LAB EARLIER FOR C-DIFF. CONTINUES ON CWIA PROTOCOL, HAS BEEN RECEIVING ATIVAN 1 MG IV Q 1HR-2HR CWIA SCALE HAS BEEN BETWEEN 10-13 TODAY. PATIENT HAS SAID SEVERAL TIMES TODAY, THAT SHE FEELS LIKE SHE NEEDS A DRINK. HAS HAD PERIODS OF FRUSTRATION SEVERAL TIMES TODAY. SEE EMAR FOR ATIVAN TIMES.
[2023-11-30 13:16] LABS: ANION GAP 13.7 (7-21); BUN/CREATININE RATIO 13.63 (6.0-28.6); CALCIUM 6.9 mg/dL (8.5-10.1); CREATININE, SERUM 0.66 mg/dL (0.55-1.02); MAGNESIUM 1.6 mg/dL (1.8-2.4); POTASSIUM 3.7 mmol/L (3.5-5.1)
--- NOTE | 2023-11-30 13:48 | NUR ---
MORE RESTFUL AFTER RECEIVING ATIVAN.
--- NOTE | 2023-11-30 14:11 | NUR ---
UNABLE TO VISIT WITH PATIENT AT THIS TIME. PATIENT IS GOING TO THE SHOWER. WILL TRY TO REVISIT PATIENT WHEN PATIENT IS ABLE TO DISCUSS THE DISCHANGE PLAN AND NEEDS FOR FUTURE CARE.
--- NOTE | 2023-11-30 14:52 | NUR ---
PATIENT INTO SHOWER VIA SHOWER CHAIR, THIS CONSUMER SAFETY OFFICER AND STUDENT PATRICK ASSISTING. PATIENT TOLERATED ACTIVITY WELL AND NEEDED LITTLE ASSISTANCE. PATIENT TEARFULL AND STATES SHE'S "SO READY TO BEAT THIS ALCOHOL ADDICTION." PATIENT BACK TO BED AT THIS TIME, CALL LIGHT AND PERSONAL ITEMS IN EASY REACH.
--- NOTE | 2023-11-30 15:00 | NUR ---
PATIENT TEARFUL AND REQUESTING CALMING MEDS. RN NOTIFIED
--- NOTE | 2023-11-30 15:24 | NUR ---
DR HERE TO REVIEW LABS WITH STAFF - V/O TO GIVE MG, KCL, PHARMACY JOHN CONSULTED.
--- NOTE | 2023-11-30 16:29 | NUR ---
SPOKE TO PATIENT ABOUT THE DISCHARGE PLAN. PATIENT WOULD LIKE THE CONVENTIONS RESERVATIONIST TO CALL" [facility]" AND HAVE SOMEONE COME UP FORM THE CRISIS TEAM TO TALK TO THE PATIENT.THERE WAS NO ANSWER SO A MESSAGE WAS LEFT.
--- NOTE | 2023-11-30 16:55 | NUR ---
[facility] CALLED BACK AND WILL SEE THE PATIENT TONIGHT OR TOMORROW. NURSE MARITZA DUQUE UPDATED.
--- NOTE | 2023-11-30 18:30 | NUR ---
PATIENT IS MORE ANXIOUS, STATES SHE FEELS LIKE SHE NEEDS A DRINK. STATES SHE FEELS VERY AGITATED. DR. GARCIA NOTIFIED. ORDERS RECEIVED TO INCREASE CWIA ATIVAN.
--- NOTE | 2023-11-30 18:40 | NUR ---
ATIVAN 2 MG IV GIVEN.
--- NOTE | 2023-11-30 18:50 | NUR ---
total OF 4 MG OF ATIVAN GIVEN PATIENT IS VERY AGITATED. PATIENT HAS BEEN LOOKING UP ON HER PHONE WHEN THE LIQUOR STORE CLOSES. PATIENT IS TEARY. NEEDS MUCH EMOTIONAL SUPPORT. IVF DECREASED TO 75 ML/HR. HAS BEEN UP TO COMMODE MANY TIMES.
--- NOTE | 2023-11-30 19:00 | NUR ---
REPORT TO NEXT SHIFT. PATIENT IS A LITTLE MORE CALM NOW.
--- NOTE | 2023-11-30 19:15 | NUR ---
RECEIVED REPORT FROM DAY SHIFT. PATIENT IS RESTING IN BED. PATIENT IS TEARFUL. PATIENT REASSURED BY THIS RN AND DAY SHIFT RN. PATIENT DENIES ANY FURTHER NEEDS. CALL LIGHT IN REACH. BED ALARM ON FOR SAFETY
--- NOTE | 2023-11-30 19:55 | NUR ---
PATIENT REQUESTED NICOTINE PATCH. NIO FOR PATCH PLACED. PATCH PLACED ON PATIENTS LEFT SHOULDER. PATIENT RATES HEADACHE AT AN 8/10, PRN MEDS GIVEN PER ORDER. RT AT BEDSIDE.
--- NOTE | 2023-11-30 20:55 | NUR ---
PATIENT ASSISTED TO THE BSC A SBA. PATIENT ABLE TO VOID. PATIENT COMPLETED OWN CARE. PATIENT IS BACK IN BED RESTING. PATIENT ASSESMENT COMPLETED. PATIENTS BS ANS SS GIVEN PER ORDER. PM MEDS PER ORDER. PATIENT REPORTS NAUSEA, PRN MEDDS GIVEN PER ORDER. PATIENTS CIWA IS 16, PRN MEDS GIVEN PER PROTOCOL. PATIENT REMAINS ON 2L VIA NC. PATIENT HAS NOTED WHEEZES. PATIENT COMPLETED IS AN ACAPELLA AND WHEEZES ARE NOTED TO HAVE CLEARED. PATIENT DENIES ANY SOB. PATIENT PROVIDED FRESH ICE WATER. PATIENT IS TEARFUL. THIS RN PROVIDED SUPPORT. PATIENT DENIES ANY FURTHER NEEDS. CALL LIGHT IN REACH. BED ALARM ON FOR SAFETY.
--- NOTE | 2023-11-30 22:06 | NUR ---
PATIENT ASSISTED TO THE BR A SBA. PAITENT ABLE TO VOID. PATIENT BACK IN BED RESTING. PATIENT DENIES ANY PAIN. PATIENT REPORTS MILD HEADACHE AND NAUSEA. PATIENT DENIES THE NEED FOR MEDICATION FOR HEADACHE AND NAUSEA. CIWA IS NOTED TO BE 5, NO INTERVENTION AT THIS TIME PER PROTOCOL. PATIENT DENIES ANY FURTHER NEEDS. CALL LIGHT IN REACH. BED ALARM ON FOR SAFETY.
--- NOTE | 2023-11-30 22:57 | NUR ---
PATIENT IS NOTED TO BE RESTLESS IN BED. PATIENTS CIWA IS 11, PRN MEDS GIVEN PER PROTOCOL. PATIENT IS AAOX4. PATIENT PROVIDED COOL RAG FOR FACE. PATIENT REMAINS ON 2L VIA NC. PATIENT DENIES ANY FURTEHR NEEDS. CALL LIGHT IN REACH. BED ALARM ON FOR SAFETY.
--- NOTE | 2023-11-30 23:47 | NUR ---
PATIENT IS RESTING IN BED ON HER LEFT SIDE. PATIENTS EYES ARE CLOSED, RR 17. PATIENT APPEARS COMFORTBALE. PATIENTS CALL LIGHT AN BELONGINGS ARE WITHIN REACH. BED ALARM ON FOR SAFETY.
[2023-12-01] VITALS (9 sets, daily range): BP systolic 126–176; BP diastolic 70–91
--- NOTE | 2023-12-01 00:26 | NUR ---
PATIENT SITTING ON EDGE OF BED. PATIENT ASSISTED TO THE BSC A SBA. PATIENT ABLE TO VOID. PATIENT ABLE TO COMPLETE SELF CARE. PATIENT IS BACK IN BED RESTING. PATIENT STATED "I HAD A DREAM ABOUT FIREBALL". PATIENT STATED "IT WAS TAUNTING ME TO DRINK IT". PATIENTS CIWA IS NOTED TO BE 15, PRN MEDDS PER PROTOCOL. PATIENTS NICOTINE PATCH REMOVED. PATIENT REPORTS HEADACHE, PRN MED PER ORDER. PATIENT PROVIDED A WARM BLANKET AND FRESH ICE WATER. PATIENT DENIES ANY FURTHER NEEDS. PATIENT IS AAOX4. PAITENT REMAINS ON 2L VIA [place]. PATIENTS CALL LIGHT AND BELONGINGS ARE WITHIN REACH. BED ALARM ON FOR SAFETY.
--- NOTE | 2023-12-01 03:16 | NUR ---
PATIENT ASSISTED TO THE BSC A SBA. PATIENT ABLE TO VOID. PATIENT IS BACK IN BED RESTING. CIWA IS NOTED TO BE 5 AND NO INTERVENTION NOTED PER PROTOCOL. PATIENT DENIES ANY FURTHER NEEDS. CALL LIGHT IN REACH. IV INFUSONG PER ORDER. BED ALARM ON FOR SAFETY.
--- NOTE | 2023-12-01 04:09 | NUR ---
PATIENTS CIWA NOTED TO BE 12, PRN MEDICATION GIVEN PER PROTOCOL. PATIENT REPORTS 8/10 HEADACHE, PRN MEDS PER ORDER. PATIENT REPORTS MILD NAUSEA BUT DENIES NEED FOR MEDICATION. PATIENT IS AA0X4. PATIENT REMAINS ON 4L VIA NC. PATIENT DENIES ANY FURTHER NEEDS. CALL LIGHT IN REACH. BED ALARM ON FOR SAFETY.
[2023-12-01 05:14] LABS: BASOPHILS 0.8 % (0-2); EOSINOPHILS 3.4 % (0-6); HEMATOCRIT 40.6 % (35.0-50.0); HEMOGLOBIN 13.9 g/dL (12.0-18.0); LYMPHOCYTES 23.9 % (24-44); MCH 31.6 (27-36); MCHC 34.2 g/dl (30-36); MCV 92.2 fl (81-99); MONOCYTES 7.3 % (0-12); NEUTROPHILS 64.6 % (39-80); PLATELET COUNT 155 K/uL (140-440)
[2023-12-01 05:28] LABS: ALBUMIN 2.8 g/dL (3.4-5.0); ALBUMIN/GLOBULIN RATIO 0.97 (1.1-2.4); ANION GAP 13.5 (7-21); BILIRUBIN, TOTAL 0.4 ng/dL (0.2-1.0); CALCIUM 7.3 mg/dL (8.5-10.1); CREATININE, SERUM 0.7 mg/dL (0.55-1.02); POTASSIUM 3.5 mmol/L (3.5-5.1); PROTEIN, TOTAL 5.7 g/dL (6.4-8.2)
--- NOTE | 2023-12-01 06:41 | NUR ---
PATIENT IS RESTING IN BED WITH EYES CLOSED, RR 17. PATIENT APPEARS TO BE RESTING COMFORTABLY. CALL LIGHT IN REACH. IV INFUSING PER ORDER. BED ALARM ON FOR SAFETY.
--- NOTE | 2023-12-01 07:30 | NUR ---
PATIENT SHIFT REPORT RECIEVED FROM SERVOMECHANISM ASSEMBLER RN. PATIENT RESTING IN BED. PATIENTS BED ALARM ON FOR SAFETY. PER REPORT PATYIENT HAD SOME VERY VIVID/STRANGE DREAMS LAST NIGHT. NICOTIN WAS REMOVED IN PRECAUTIONS OF IT BEING FROM THE PATCH THAT WAS ADDED PRIOR TO THAT. CALL LIGHT IN REACH.
--- NOTE | 2023-12-01 09:00 | NUR ---
THIS RN AND STUDENT RN MAGDIEL IN TO DO AM CARES. STAFF AT BEEN AT PATIENTS BEDSIDE MOST OF THE MORNING. PATIENT UP TO THE BATHROOM WITH CORD MANAGEMENT. PATIENT THEN SITTING UP IN THE CHAIR AND TOLERATING WELL. PATIENTS LINEN CHANGED. MEDICATIONS ADMINISTERED. PRN ATIVAN GIVEN FOR CIWA >8. SEE CIWA DOCUMENTATION. PATIENTS BREATH SOUNDS CLEAR. PATIENT HAS OCC. COUGH. PATIENT REPORTS 1-2 PACKS CIGARETTES DAILY WITH DRINKING. PATIENT DENIES WANTING NICOTIN PATCH D/T VIVID/HORROR DREAMS LAST NIGHT. PATIENT STATES "ILL JUST USE THE GUM NEEDED". PATIENT BOWEL TONES ACTIVE. NO EDEMA NOTED. PATIENT BRUSHED HER TEETH AND WASH FACE THIS AM. PATIENT VERY OPEN WITH STAFF AND [id number] SHE IS READY TO MAKE THE STEPS NEEDED TO STOP DRINKING AND WANTS TO DO INPATIENT REHAB. PATIENT STATES "I KNOW MYSLEF AND I WONT BE SUCCESFUL ON MY OWN".
--- NOTE | 2023-12-01 09:30 | NUR ---
JOSSELINE WITH [facility] HERE TO DISCUSS PLANS/OPTIONS WITH PATIENT. OKAYED WITH PATIENT PRIOR TO [facility] ARRIVAL AND PATIENT IS OKAY WITH STUDENT RN TO COME IN DURING THIS TIME.
--- NOTE | 2023-12-01 10:25 | NUR ---
[facility] IS FINISHED. THEY WILL BE CALLING PATIENT LATER TODAY WITH THE [facility]. PATIENT HAS BEEN VERY OPEN WITH STAFF AND IS READY TO DO TREATMENT.
--- NOTE | 2023-12-01 11:45 | NUR ---
THIS RN AND STUDENT RN IN DOING CARE FOR PATIENT. PATIENTS CIWA REMAINS ELEVATED WILL GIVE ATIVAN PER CIWA PROTOCOL. SEE ALCOHOL WITHDRAWL DOCUMETATION.
[2023-12-01] MEDS ORDERED: TRULICITY0.75 MG/0. SUB-Q (13:03)
--- NOTE | 2023-12-01 13:03 | NUR ---
MED REC COMPLETE
--- NOTE | 2023-12-01 13:30 | NUR ---
MD AND CASEMANGEMENT IN TO TALK WITH PATIENT ABOUT PLAN OF CARE.
--- NOTE | 2023-12-01 15:15 | NUR ---
NOTIFIED MD OF [facility] MEDICATION REGIMEN WITH INCREASING LIBRIUM BASED ON CIWA. PER MD WE WILL ATTEMPT TO NOT GIVE ANY ATIVAN THE REMAINDER OF THE SHIFT AND UTILIZE LIBRIUM AND MONITOR FOR EFFECTIVENESS WITH CURRENT DOSING. PATIENT UPDATED ON PLAN OF CARE. PATIENT AGREEABLE TO PLAN AT THIS TIME. SENT OFLA PAPERWORK TO PATIENTS PRIMARY CARE PER REQUEST. SPOKE WITH PRIMARY CARE RECEPTINOIST AND PATIENT HAS AN APT FOR TUESDAY AND PAPERWORK CAN BE PICKED UP AT THAT TIME. STAFF ARE OUT OF THE OFFICE UNTIL TUESDAY. PLAN FOR JOSSELINE WITH [facility] TO TRANSPORT PATIENT TO [facility] IN THE AM AT 0930 TOMORROW. PATIENT AGREEABLE TO PLAN OF CARE. PATIENT STATES "I WILL UPDATE MY FAMILY A LITTLE LATER". PATIENT RESTING IN BED AT THIS TIME.
--- NOTE | 2023-12-01 15:45 | NUR ---
Recieved call from Katie with [facility], states she can be at facility to transport patient to [facility] tomorrow, 12/02/23 at 0930. Jonatan Mclean RN, notified.
--- NOTE | 2023-12-01 16:23 | NUR ---
PATIENT CALLED AND STATES "IM JUST HAVING SOME INCREASED ANXIETY. SPOKE WITH PATIENT ABOUT SOME DISTRACTION COPING MECHANISMS. PATIENT IS DUE FOR PO MEDICATION IN APPROX 20 MIN. PATIENT AGREEABLE TO PLAN OF CARE. PATIENT ON HER PHONE AND RESTING IN THE BED NOW AT THIS TIME AND DOING BETTER.
--- NOTE | 2023-12-01 16:35 | NUR ---
PO MEDICATION GIVEN. PATIENT RESTING IN THE BED. PATIENT WANTS TO GET UP AND SHOWER THIS EVENING.
[2023-12-01 17:19] LABS: ANION GAP 12.9 (7-21); BUN/CREATININE RATIO 11.62 (6.0-28.6); CALCIUM 7.6 mg/dL (8.5-10.1); CREATININE, SERUM 0.86 mg/dL (0.55-1.02); MAGNESIUM 2.3 mg/dL (1.8-2.4); POTASSIUM 3.9 mmol/L (3.5-5.1)
--- NOTE | 2023-12-01 17:34 | NUR ---
After giving insulin for blood glucose of 232, patient was given dinner. Patient's position was sitting upright with legs crossed. Nicotine gum is on her tray and available for her when she is finished eating. Ana stated that she is "craving fireball and a cigarette". Her fiance, Krish, and son are on their way to visit her. A shower is planned after eating and them visiting, a linen change was performed earlier in the day. Insulin was given in the back of her left arm, 5 units per the sliding scale.
--- NOTE | 2023-12-01 17:56 | NUR ---
EVENING MEDICATIONS GIVEN. DINNER PROVIDED. PATIENT HAS HAD SEVERAL VISITORS THIS EVENING. PATIENTS AND SON AT THE BEDSIDE.
--- NOTE | 2023-12-01 18:45 | NUR ---
PT UP TO BATHROOM INDEPENDENTLY - RN IN ROOM TO CHECK ON HER, DENIES NEEDS OR HELP.
--- NOTE | 2023-12-01 18:45 | NUR ---
PT BACK FROM BATHROOM AND REPORTS EMESIS IN TOILET. STATES IT WAS "ALL OF DINNER, A LOT". PRN COMPAZINE ADMINISTERED. WARM BLANKETS PROVIDED. NIGHT RN UPDATED.
--- NOTE | 2023-12-01 19:40 | NUR ---
PROVIDED MD WITH UPDATE ON PATIENT'S EMESIS, ANXIETY, AND CIWA LEVELS. DISCUSSED PRN VISTRIL FOR ANXIETY AND INCREASED DOSE OF LIBRIUM STARTING NOW. VERIFIED VIA REPEAT BACK METHOD. REVIEWED LABS AND OVERALL PLAN OF CARE.
--- NOTE | 2023-12-01 20:00 | NUR ---
PATIENT REQUEST A SANDWICH BOX WHICH WAS PROVIDED TO HER BY MARCUS KAPOOR
--- NOTE | 2023-12-01 20:30 | NUR ---
PATIENT PROVIDED LIBRIUM PER ORDER. PATIENT IS RESTING IN BED AND REPORTS FEELING ANXIOUS BUT DENIED GI UPSET AT THIS TIME. ATE 100% OF THE SANDWICH BOX PROVIDED TO HER. DISCUSSED PLAN OF CARE. PROVIDED WARM BLANKET. NO OTHER NEEDS AT THIS TIME. CALL LIGHT IN REACH.
--- NOTE | 2023-12-02 00:58 | NUR ---
PATIENT PROVIDED SCHEDULED MEDS. PATIENT WOKE EASILY TO VOICE. ORIENTED TO PERSON, EVENTS AND SURROUNDINGS. PATIENT DENIED ANY FURTHER NEEDS. RASS 0. ALLOWED PATIENT TO REST. CALL LIGHT IN REACH.
[2023-12-02 02:43] LABS: C. DIFF TOXIN B GENE TCDB,PCR Not Detected (())
--- NOTE | 2023-12-02 03:00 | NUR ---
PATIENT APPEARS VERY COMFORTABLE IN BED. EYES CLOSED. BREATHING EVEN AND NON-LABORED. TELE IN PLACE; HR 85.
--- NOTE | 2023-12-02 05:00 | NUR ---
LAB IN TO DRAW BLOOD. PATIENT WOKE EASILY. DENIED ANY CONCERNS OR NEEDS.
[2023-12-02 05:29] LABS: BASOPHILS 1.1 % (0-2); EOSINOPHILS 4.4 % (0-6); HEMOGLOBIN 13.9 g/dL (12.0-18.0); LYMPHOCYTES 32.1 % (24-44); MCH 31.8 (27-36); MCHC 34.9 g/dl (30-36); MCV 91.2 fl (81-99); MONOCYTES 8.6 % (0-12); NEUTROPHILS 53.8 % (39-80); PLATELET COUNT 158 K/uL (140-440); RBC 4.39 M/ul (4.3-5.7); RDW 13.2 (10.5-15.0)
[2023-12-02 05:51] LABS: ALBUMIN 2.9 g/dL (3.4-5.0); ALBUMIN/GLOBULIN RATIO 0.88 (1.1-2.4); ANION GAP 15.8 (7-21); BILIRUBIN, TOTAL 0.4 ng/dL (0.2-1.0); BUN/CREATININE RATIO 17.56 (6.0-28.6); CALCIUM 7.4 mg/dL (8.5-10.1); CREATININE, SERUM 0.74 mg/dL (0.55-1.02); MAGNESIUM 1.5 mg/dL (1.8-2.4); POTASSIUM 3.8 mmol/L (3.5-5.1); PROTEIN, TOTAL 6.2 g/dL (6.4-8.2)
[2023-12-02 06:23] VITALS: BP 138/67
--- NOTE | 2023-12-02 06:26 | NUR ---
PATIENT PROVIDED WITH SCHEDULED MEDS. PATIENT CIWA < 8. VS STABLE. PATIENT UP TO THE BATHROOM WITHOUT ASSISTANCE. DENIED ANY NEEDS OR CONCERNS.
--- NOTE | 2023-12-02 07:30 | NUR ---
REPORT RECIEVED FROM SENIOR CATEGORY MANAGER RN. PATIENT UP SITTING IN BED AT THIS TIME. PATIENT ALERT AND ORIENTED AND DENIES ANY NEEDS AT THIS TIME. CALL LIGHT IN REACH.
--- NOTE | 2023-12-02 08:40 | NUR ---
PATIENT IN SHOWER WITH STUDENT ASSISTING. ROOM TIDIED AND LINEN CHANGED.
[2023-12-02 08:57] VITALS: BP 141/88
--- NOTE | 2023-12-02 09:06 | NUR ---
PATIENT WILL BE DC'D TODAY TO [facility]. JOSSELINE [phone] [facility] WILL TRANSPORT TO [facility]. ARTIFICIAL PEARL MAKER ALEJANDRA CCU EMELIA LOZADA.
--- NOTE | 2023-12-02 09:30 | NUR ---
PATIENT ASSESSMENT COMPLETED. PATIENT ALERT AND ORIENTED. PATIENTS CIWA 6. PATIENT REPORTS ANXIETY AND HEADACHE. PATIENT DENIES ANY HALLUCINATIONS. PATIENT ASSISTED UP TO THE BATHROOM TO SHOWER THIS MORNING AND TOLERATED WELL. PREPARE FOR DISCHARGE TO DETOX CENTER. PATIENT HAS BEEN VERY THANKFUL FOR ALL OF THE ASSISTANCE SHE HAS BEEN PROVIDED. PATIENT STEADY ON HER FEET AND INDEPENDENT IN THE ROOM. MAGDIEL STUDENT NURSE HAS BEEN IN WITH PATIENT MOST OF THE DAY PROVIDING CARES FOR PATIENT. MEDICATIONS GIVEN. PLAN OF CARE REVIEWED. PATIENTS IV INFILTRATED THIS AM. PATIENT REFUSED ANOTHER IV FOR IV MAGNESIUM MD UPDATED. ORAL MAGNESIUM PRESCRIPTION WILL BE ORDERED FOR PATIENT UPON DISCHARGE.
--- NOTE | 2023-12-02 11:00 | NUR ---
AWAITING PATIENTS DISCHARGE AND PRESCRIPTIONS TO BE SENT AND THEN WILL CALL THE [facility]OX CENTER FOR UPDATE ON WHEN PATIENT WILL BE READY FOR DC.
[2023-12-02] MEDS ORDERED: ATORVASTATIN CA40 MG PO (11:01)
[2023-12-02] MEDS ORDERED: METOPROLOL SUC100 MG PO (11:03)
[2023-12-02] MEDS ORDERED: AMLODIPINE BESYL5 MG PO ×2 (11:04→12:03)
[2023-12-02] MEDS ORDERED: NORTRIPTYLINE H10 MG PO (11:04)
[2023-12-02] MEDS ORDERED: PANTOPRAZOLE SO40 MG PO (11:05)
[2023-12-02] MEDS ORDERED: INSULIN GL100 UNIT/1 SUB-Q (11:06)
[2023-12-02] MEDS ORDERED: FOLIC ACID1 MG PO (11:08)
[2023-12-02] MEDS ORDERED: HUMULIN R100 UNIT/1 SUB-Q (11:08)
[2023-12-02] MEDS ORDERED: THERA TABLET400 MCG PO (11:09)
[2023-12-02] MEDS ORDERED: VITAMIN B-1100 MG PO (11:09)
[2023-12-02] MEDS ORDERED: MAGOX 400400 MG PO (12:02)
[2023-12-02 12:48] VITALS: BP 119/86
--- NOTE | 2023-12-02 12:49 | NUR ---
CALLED AND UPDATED THE [facility] OF PATIENT READY FOR DISCHARGE. [facility] WILL BE HERE TO TRAVEL COUNSELOR PATIENT. REPORT GIVEN AT THIS TIME. ALL QUESTIONS ANSWERED. PATIENT VITALS COMPLETED AND READY TO DC AT THIS TIME.
== END 2023-12-02 13:30 | DRG 897 ==
LOC: ED 10:30 → CCU 10:32
PROVIDERS: Emergency Medicine; Internal Medicine; ADMIT Internal Medicine; ATTEND Internal Medicine
PROC: HZ2ZZZZ Detoxification Services for Substance Abuse Treatment (ICD-10-PCS; principal; 2023-12-01)
DX: F10.239 Alcohol dependence with withdrawal, unspecified (principal); B02.29 Other postherpetic nervous system involvement; I10 Essential (primary) hypertension; E11.9 Type 2 diabetes mellitus without complications; F17.210 Nicotine dependence, cigarettes, uncomplicated; E87.6 Hypokalemia; E83.42 Hypomagnesemia; F41.9 Anxiety disorder, unspecified; R91.1 Solitary pulmonary nodule; Z98.890 Other specified postprocedural states; Z90.49 Acquired absence of other specified parts of digestive tract; Z90.710 Acquired absence of both cervix and uterus; Z88.2 Allergy status to sulfonamides; Z88.8 Allergy status to other drugs, medicaments and biological substances; Z79.2 Long term (current) use of antibiotics; Z79.899 Other long term (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; Z79.4 Long term (current) use of insulin; Z79.51 Long term (current) use of inhaled steroids
CPT/HCPCS: 36415; 80048; 80053; 81001; 83690; 83735; 84100; 84703; 85025; 87493; 94667; 94668; 94760; 96361; 96374; 96375; 99284-25; A9270; C9113; J0780; J1200; J1650; J1790; J1815; J2060; J2405; J3411; J3475; J3480; J3490; J7030; J7060

== ENCOUNTER 2025-05-15 13:06 | Emergency (ER) | payer OTHER ==
[~2025-05-15] VITALS: Ht 152.4 cm; Wt 70.7 kg
[~2025-05-15 13:06] MED LIST changes: +AMLODIPINE BESYL5 MG PO; +ASPERCREME1 EACH TP; +FOLIC ACID1 MG PO; +HUMULIN R100 UNIT/1 SUB-Q; +INSULIN GL100 UNIT/1 SUB-Q; +LOSARTAN POTASS50 MG PO; +MAGOX 400400 MG PO; +METHYLPREDNISOLO4 M1 PO; +METOPROLOL SUC100 MG PO; +NORTRIPTYLINE H10 MG PO; +THERA TABLET400 MCG PO; +TRULICITY0.75 MG/0. SUB-Q; +VITAMIN B-1100 MG PO; +ZANAFLEX2 M1 PO
[2025-05-15] MEDS ORDERED: GABAPENTIN300 MG PO (13:58)
[2025-05-15] MEDS ORDERED: TRAZODONE HCL150 MG PO (13:58)
[2025-05-15] MEDS ORDERED: OZEMPIC1 MG/0.71 SQ (13:58)
[2025-05-15] MEDS ORDERED: ZANAFLEX4 MG PO (13:58)
[2025-05-15] MEDS ORDERED: OXYCODONE/APAP 5/325 TAB PO ONE (15:00)
[2025-05-15] MEDS ORDERED: PERCOCET 5-3251 EACH PO (15:05)
[2025-05-15] MEDS ORDERED: ONDANSETRON ODT4 MG PO (15:05)
[2025-05-15] MEDS ORDERED: METHYLPREDNISOLO4 M1 PO (15:05)
[2025-05-15 15:45] VITALS: BP 140/90
== END 2025-05-15 15:47 | disposition home or self-care (01) ==
LOC: ED 13:06
DX: M54.50 Low back pain, unspecified (principal); I10 Essential (primary) hypertension; E11.9 Type 2 diabetes mellitus without complications; F17.200 Nicotine dependence, unspecified, uncomplicated; Z88.8 Allergy status to other drugs, medicaments and biological substances; Z79.4 Long term (current) use of insulin; Z79.899 Other long term (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
CPT/HCPCS: 96372; 99283; A9270; J2919

== ENCOUNTER 2025-07-05 15:56 | Emergency (ER) | payer OTHER ==
[~2025-07-05] VITALS: Ht 152.4 cm; Wt 70.7 kg
[~2025-07-05 15:56] MED LIST changes: +GABAPENTIN300 MG PO; +ONDANSETRON ODT4 MG PO; +OZEMPIC1 MG/0.71 SQ; +PERCOCET 5-3251 EACH PO; +TRAZODONE HCL150 MG PO; +ZANAFLEX4 MG PO
[2025-07-05] MEDS ORDERED: MORPHINE SULFATE 4 MG/ML VIAL IV ONE (17:30)
[2025-07-05] MEDS ORDERED: KETOROLAC TROMETHAMINE 30 MG/ML VIAL IV ONE (17:30)
[2025-07-05 17:31] LABS: BASOPHILS 0.8 % (0.1-1.2); EOSINOPHILS 3.7 % (0.7-5.8); LYMPHOCYTES 31.2 % (19.3-51.7); MCH 29.3 PG (25.6-32.2); MCHC 33.7 g/dL (32.2-35.5); MCV 87.1 fL (79.4-94.8); MONOCYTES 6.8 % (4.7-12.5); NEUTROPHILS 57.3 % (34.0-71.1); RBC 4.57 M/uL (3.93-5.22)
[2025-07-05 17:36] LABS: GLOMERULAR FILTRATION RATE,EST 110.0 mL/min (>60); UREA NITROGEN 15.0 mg/dL (7-18)
[2025-07-05] MEDS ORDERED: OXYCODONE/APAP 5/325 TAB PO ONE (18:15)
[2025-07-05] MEDS ORDERED: OXYCODONE/ACETAMINOPHEN 1 TAB HOME.PACK PO ONE (18:45)
[2025-07-05] MEDS ORDERED: PREDNISONE20 MG PO (18:54)
[2025-07-05 19:19] VITALS: BP 157/81
== END 2025-07-05 19:20 | disposition home or self-care (01) ==
LOC: ED 15:56
PROVIDERS: Emergency Medicine
DX: M54.50 Low back pain, unspecified (principal); I10 Essential (primary) hypertension; E11.9 Type 2 diabetes mellitus without complications; F17.200 Nicotine dependence, unspecified, uncomplicated; Z88.8 Allergy status to other drugs, medicaments and biological substances; Z88.2 Allergy status to sulfonamides; Z88.1 Allergy status to other antibiotic agents; Z79.4 Long term (current) use of insulin; Z79.899 Other long term (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
CPT/HCPCS: 36415; 80048; 85025; 96374; 96375; 99283-25; J1885; J2270; J2405

== ENCOUNTER 2025-07-31 16:01 | Emergency (ER) | payer OTHER ==
[~2025-07-31] VITALS: Ht 152.4 cm; Wt 68.0 kg
--- OUTSIDE RECORDS SUMMARY | 2025-07-31 16:08 | XMS ---
PreManage Notification: JOSÉ MANUEL LUCAS Security Office Technician Events No recent Security Events currently on file CRITERIA MET - [facility] - 2 Visits in 30 Days CARE PROVIDERS MARZENA BELTRE Nurse Practitioner: 08/24/2021-Current PHONE: [phone] Vanessa Ziegler Community Health Worker 03/13/2020-Current PHONE: [phone] -[facility] Dentist: Dialysis Clinical Manager [facility] PHONE: [phone] -[place]- Dentist: Dialysis Clinical Manager Current [facility] Dental [facility] PHONE: [phone] [facility]/Center: [facility] Current FAMILY PHONE: [phone] Cesar has no Care Guidelines for this patient. Darline VISIT COUNT (12 MO.) [address] [facility] . TOTAL 3 NOTE: Visits indicate total known visits. ED/UCC VISIT TRACKING (12 MO.) 07/31/2025 16:02 [facility] [place] TYPE: Emergency COMPLAINT: - RT SHOULDER/ARM PAIN 07/05/2025 15:57 [facility] [place] TYPE: Emergency COMPLAINT: - BACK PAIN DIAGNOSES: - Allergy status to other antibiotic agents - Allergy status to other drugs, medicaments and biological substances - Allergy status to sulfonamides - Essential (primary) hypertension - USP (current) use of insulin - Low back pain, unspecified - Nicotine dependence, unspecified, uncomplicated - Other mcc (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 - Type 2 diabetes mellitus without complications 05/15/2025 13:07 [facility] [place] TYPE: Emergency COMPLAINT: - BACK PAIN DIAGNOSES: - Allergy status to other drugs, medicaments and biological substances - Essential (primary) hypertension - USP (current) use of insulin - Low back pain, unspecified - Nicotine dependence, unspecified, uncomplicated - Other mcc (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 - Type 2 diabetes mellitus without complications INPATIENT VISIT TRACKING (12 MO.) [facility] DIAGNOSES: - Other intervertebral disc displacement, lumbar region - Radiculopathy, lumbar region - Other intervertebral disc degeneration, lumbar region with discogenic back pain only [email or web address]
[2025-07-31] MEDS ORDERED: PREDNISONE20 MG PO (16:57)
[2025-07-31] MEDS ORDERED: PERCOCET 5-3251 EACH PO (16:57)
[2025-07-31] MEDS ORDERED: PROTONIX40 MG PO (16:57)
[2025-07-31 17:04] VITALS: BP 130/89
== END 2025-07-31 17:05 | disposition home or self-care (01) ==
LOC: ED 16:01
DX: M54.12 Radiculopathy, cervical region (principal); I10 Essential (primary) hypertension; E11.9 Type 2 diabetes mellitus without complications; F17.200 Nicotine dependence, unspecified, uncomplicated; Z88.8 Allergy status to other drugs, medicaments and biological substances; Z88.1 Allergy status to other antibiotic agents; Z88.2 Allergy status to sulfonamides; Z79.899 Other long term (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
CPT/HCPCS: 99283

== ENCOUNTER 2025-08-09 16:05 | Emergency (ER) | payer OTHER ==
[~2025-08-09] VITALS: Ht 152.4 cm; Wt 68.7 kg
--- OUTSIDE RECORDS SUMMARY | ~2025-08-09 | XMS | Continuity of Care Document ---
Demographics + + + | Address | [address] | | | [place] [address] | + + + | Preferred Language | Unknown | + + + | Marital Status | Domestic partner | + + + | Church Affiliation | Unknown | + + + | Race | White | + + + | Ethnic Group | Not or | + + + Author + + + | Author | [facility] | + + + | Organization | [facility] | + + + | Address | [address] | | | [place] [address] | + + + | Phone | | + + + Care Team Providers + + + + | Care Organizational Consultant Name | Role | Phone | + [...] (no date) | TIZANIDINE HCL | [facility] | | | | [facility] | + + + + | (no date) | DULAGLUTIDE | [facility] | | | | [facility] | + + + + | (no date) | Insulin | [facility] | | | Tato Ibarra | [facility] | + + + + | (no date) | AMLODIPINE BESYLATE | [facility] | | | | [facility] | + + + + | (no date) | MAGNESIUM OXIDE | [facility] | | | | [facility] | + + + + | (no date) | Semaglutide | [facility] | | | | [facility] | + + + + | (no date) | GABAPENTIN | [facility] | | | | [facility] | + + + + | 2025-07-05 00:00 | predniSONE | [facility] | | | | [facility] | + + + + | (no date) | PANTOPRAZOLE SODIUM | [facility] | | | | [facility] | + + + + | (no date) | TIZANIDINE HCL | [facility] | | | | [facility] | + + + + | (no date) | ATORVASTATIN CALCIUM | [facility] | | | | [facility] | + + + + | (no date) | VARENICLINE TARTRATE | [facility] | | | | [facility] | + + + + | (no date) | TRAZODONE HCL | [facility] | | | | [facility] | + + + + | (no date) | METFORMIN HCL | [facility] | | | | [facility] | + + + + | (no date) | METOPROLOL SUCCINATE | [facility] | | | | [facility] | + + + + | (no date) | | [facility] | | | LOSARTAN/HYDROCHLOROTHIAZID | [facility] | | | E | | + + + + | (no date) | LOSARTAN POTASSIUM | [facility] | | | | [facility] | + + + + | (no date) | LOSARTAN POTASSIUM | [facility] | | | | [facility] | + + + + Problems [...] 3.9 | (missing) | (missing) | | [facility] | 17:22:07 | [facility] | | | [...]
[~2025-08-09 16:05] MED LIST changes: +PROTONIX40 MG PO
--- OUTSIDE RECORDS SUMMARY | 2025-08-09 16:12 | XMS ---
PreManage Notification: JOSÉ MANUEL LUCAS Security Ply Bander Events No recent Security Events currently on file CRITERIA MET - [facility] - 2 Visits in 30 Days CARE PROVIDERS MARZENA BELTRE Nurse Practitioner: 08/24/2021-Current PHONE: [phone] Vanessa Ziegler Community Health Worker 03/13/2020-Current PHONE: [phone] -[facility]+ Dentist: Export Agent [facility] PHONE: [phone] -[place]eles- Dentist: Export Agent Current Counts Include 234 [facility] At [facility] Dental [facility] PHONE: [phone] [facility]: [facility] Current FAMILY PHONE: [phone] Cesar has no Care Guidelines for this patient. Darline VISIT COUNT (12 MO.) [address] [facility]. TOTAL 4 NOTE: Visits indicate total known visits. ED/UCC VISIT TRACKING (12 MO.) 08/09/2025 16:06 [facility]egas [place] TYPE: Emergency COMPLAINT: - RT ARM/NECK PAIN 07/31/2025 16:02 [facility]ATHRYN Banegas [place] TYPE: Emergency COMPLAINT: - RT SHOULDER/ARM PAIN DIAGNOSES: - Allergy status to other antibiotic agents - Allergy status to other drugs, medicaments and biological substances - Allergy status to sulfonamides - Essential (primary) hypertension - Nicotine dependence, unspecified, uncomplicated - Other fci (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 - Radiculopathy, cervical region - Type 2 diabetes mellitus without complications - Weakness 07/05/2025 15:57 KATHRYN Banegas [place] TYPE: Emergency COMPLAINT: - BACK PAIN DIAGNOSES: - Allergy status to other antibiotic agents - Allergy status to other drugs, medicaments and biological substances - Allergy status to sulfonamides - Essential (primary) hypertension - oysterman (current) use of insulin - Low back pain, unspecified - Nicotine dependence, unspecified, uncomplicated - Other 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 driver (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 - Type 2 diabetes mellitus without complications 05/15/2025 13:07 [place]: Emergency COMPLAINT: - BACK PAIN DIAGNOSES: - Allergy status to other drugs, medicaments and biological substances - Essential (primary) hypertension - oysterman (current) use of insulin - Low back pain, unspecified - Nicotine dependence, unspecified, uncomplicated - 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
[2025-08-09] MEDS ORDERED: OXYCODONE/APAP 5/325 TAB PO ONE (18:30)
[2025-08-09] MEDS ORDERED: OXYCODONE/ACETAMINOPHEN 1 TAB HOME.PACK PO ONE (18:30)
[2025-08-09 18:55] VITALS: BP 122/72
== END 2025-08-09 18:56 | disposition home or self-care (01) ==
LOC: ED 16:05
DX: M54.2 Cervicalgia (principal); M79.601 Pain in right arm; G89.29 Other chronic pain; I10 Essential (primary) hypertension; E11.9 Type 2 diabetes mellitus without complications; F17.200 Nicotine dependence, unspecified, uncomplicated; Z88.2 Allergy status to sulfonamides; Z88.1 Allergy status to other antibiotic agents; Z79.85 Long-term (current) use of injectable non-insulin antidiabetic drugs; Z79.899 Other long term (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
CPT/HCPCS: 99283

== ENCOUNTER 2025-08-13 10:54 | Emergency (ER) | payer OTHER ==
[~2025-08-13] VITALS: Ht 152.4 cm; Wt 68.1 kg
--- OUTSIDE RECORDS SUMMARY | ~2025-08-13 | XMS | Continuity of Care Document ---
Demographics + + + | Address | [address] | | | [place] [address] | + + + | Preferred Language | Unknown | + + + | Marital Status | Domestic partner | + + + | Adventism Affiliation | Unknown | + + + | Race | White | + + + | Ethnic Group | Not or | + + + Author + + + | Author | [facility] | + + + | Organization | [facility] | + + + | Address | [address] | | | [place] [address] | + + + | Phone | | + + + Care Team Providers + + + + | Care Nurse Charge Rn Name | Role | Phone | + + + + Unavailable | Unavailable | + + + + Unavailable | Unavailable | + + + + Allergies and Intolerances + + + + + + | date | description | facility | reaction | severity | + + + + + + | 2025-07-05 | | [facility] - | Pain | (no severity) | | 00:00 | Sulfamethoxazol | [facility] | | | + + + + + + | 2025-07-05 | Trimethoprim | [facility] - | Pain | (no severity) | | 00:00 | | [facility] | | | + + + + + + | 2025-07-05 | | [facility] - | Pain | (no severity) | | 00:00 | Sulfamethoxazol | [facility] | | | | | e | Hospital | | | + + + + + + | 2025-07-05 | Metformin | [facility] - | Diarrhea | (no severity) | | 00:00 | | [facility] | | | | [facility] | | | + + + + + + | 2025-07-05 | Trimethoprim | [facility] - | Pain | (no severity) | | 00:00 | | [facility] | | [facility] | | | + + + + + + | 2025-07-05 | Metformin | [facility] - | Diarrhea | (no severity) | | 00:00 | | [facility] | | [facility] | | | + + + + + + | 2025-07-05 | Metformin | [facility] - | Diarrhea | (no severity) | | 00:00 | | [facility] | [facility] | | | + + + + + + | 2025-07-05 | Trimethoprim | [facility] - | Pain | (no severity) | | 00:00 | | [facility] | | | + + + + + + | 2025-07-05 | | [facility] - | Pain | (no severity) | | 00:00 | Sulfamethoxazol | [facility] | | | + + + + + + Encounters No information. Functional Status No information. Immunizations No information. Medications + + + + | date | description | facility | + + + + | 2025-07-05 00:00 | OXYCODONE | [facility] | | | HCL/ACETAMINOPHEN | [facility] | + + + + | (no date) | TIZANIDINE HCL | [facility] | | | | [facility] | + + + + | (no date) | DULAGLUTIDE | [facility] | | | | [facility] | + + + + | (no date) | Insulin | [facility] | | | Tato Ibarra | [facility] | + + + + | (no date) | AMLODIPINE BESYLATE | [facility] | | | | [facility] | + + + + | (no date) | MAGNESIUM OXIDE | [facility] | | | | [facility] | + + + + | (no date) | Semaglutide | [facility] | | | | [facility] | + + + + | (no date) | GABAPENTIN | [facility] | | | | [facility] | + + + + | 2025-07-05 00:00 | predniSONE | [facility] | | | | [facility] | + + + + | (no date) | PANTOPRAZOLE SODIUM | [facility] | | | | [facility] | + + + + | (no date) | TIZANIDINE HCL | [facility] | | | | [facility] | + + + + | (no date) | ATORVASTATIN CALCIUM | [facility] | | | | [facility] | + + + + | (no date) | VARENICLINE TARTRATE | [facility] | | | | [facility] | + + + + | (no date) | TRAZODONE HCL | [facility] | | | | [facility] | + + + + | (no date) | METFORMIN HCL | [facility] | | | | [facility] | + + + + | (no date) | METOPROLOL SUCCINATE | [facility] | | | | [facility] | + + + + | (no date) | | [facility] | | | LOSARTAN/HYDROCHLOROTHIAZID | [facility] | | | E | | + + + + | (no date) | LOSARTAN POTASSIUM | [facility] | | | | [facility] | + + + + | (no date) | LOSARTAN POTASSIUM | [facility] | | | | [facility] | + + + + Problems + + + + | date | description | facility | + + + + | 2025-05-15 00:00 | Back pain | [facility] | | | | [facility] | + + + + Procedures No information. Results/Labs +--------+--------+ +---------+--------+---------+ | test | date | facility | value | unit | notes | +--------+--------+ +---------+--------+---------+ + + | Result panel 1 | + + + + + +--------+ + + | WBC # Bld | 2025-07-05 | | 9.68 | (missing) | (missing) | | Auto | 17:22:07 | [facility] | | | | | | | - | | | | | | [facility] | | | | + + + +--------+ + + + + | Result panel 2 | + + + + + +--------+ + + | Lymphocytes | 2025-07-05 | | 31.2 | (missing) | (missing) | | NFr Bld | 17:22:07 | [facility] | | | | | Auto | [facility] | | | | + + + +--------+ + + + + | Result panel 3 | + + + + + +-------+ + + | Monocytes | 2025-07-05 | | 6.8 | (missing) | (missing) | | NFr Bld Auto | 17:22:07 | [facility] | | | | | [facility] | | | | + + + +-------+ + + + + | Result panel 4 | + + + + + +-------+ + + | Eosinophil | 2025-07-05 | | 3.7 | (missing) | (missing) | | NFr Bld Auto | 17:22:07 | [facility] | | | | + + + +-------+ + + + + | Result panel 5 | + + + + + +-------+ + + | Basophils | 2025-07-05 | | 0.8 | (missing) | (missing) | | NFr Bld Auto | 17::07 | [facility] | | | | + + + +-------+ + + + + | Result panel 6 | + + + + + +-------+---------+ + | Glucose | 2025-07-05 | | 121 | mg/dL | (missing) | | SerPl-mCnc | 17::07 | [facility] | | | | + + + +-------+---------+ + + + | Result panel 7 | + + + + + +------+---------+ + | BUN | 2025-07-05 | | 15 | mg/dL | (missing) | | Eliza-Luisa | 17:22:07 | [facility] | | | | + + + +------+---------+ + + + | Result panel 8 | + + + + + +--------+---------+ + | Creat | 2025-07-05 | | 0.69 | mg/dL | (missing) | | Yoly | 17:22:07 | [facility] | | | | + + + +--------+---------+ + + + | Result panel 9 | + + + + + +-------+ + + | eGFRcr | 2025-07-05 | | 110 | (missing) | (missing) | | SerPlBld | 17:22:07 | [facility] | | | | | CKD-EPI 2020 | [facility] | | | | + + + +-------+ + + + + | Result panel 10 | + + + + + +---------+ + + | BUN/Creat | 2025-07-05 | | 21.73 | (missing) | (missing) | | SerPl | 17:22:07 | [facility] | | | | + + + +---------+ + + + + | Result panel 11 | + + + + + +-------+ + + | Sodium | 2025-07-05 | | 141 | (missing) | (missing) | | SerPl-sCnc | : | [facility] | | | | + + + +-------+ + + + + | Result panel 12 | + + + + + +--------+ + + | RBC # Bld | 2025-07-05 | | 4.57 | (missing) | (missing) | | Auto | 17:22:07 | [facility] | | | | + + + +--------+ + + + + | Result panel 13 | + + + + + +-------+ + + | Potassium | 2025-07-05 | | 3.9 | (missing) | (missing) | | [facility] | 17:22:07 | [facility] | [facility] | [facility] | | | | + + + +-------+ + + + + | Result panel 14 | + + + + + +-------+ + + | Chloride | 2025-07-05 | | 104 | (missing) | (missing) | | SerPl-sCnc | 17:22:07 | [facility] | | | | | [facility] | | | | + + + +-------+ + + + + | Result panel 15 | + + + + + +------+ + + | CO2 | 2025-07-05 | | 30 | (missing) | (missing) | | SerPl-sCnc | 17:22:07 | [facility] | | [facility] | | | | + + + +------+ + + + + | Result panel 16 | + + + + + +--------+ + + | Anion Gap | 2025-07-05 | | 10.9 | (missing) | (missing) | | SerPl | 17:22:07 | [facility] | | | | | Calculated.4 | [facility] | [facility] | | | | + + + +--------+ + + + + | Result panel 17 | + + + + + +-------+---------+ + | Calcium | 2025-07-05 | | 8.9 | mg/dL | (missing) | | SerPl-mCnc | 17:22:07 | [facility] | | | | + + + +-------+---------+ + + + | Result panel 18 | + + + + + +--------+ + + | Hgb | 2025-07-05 | | 13.4 | (missing) | (missing) | | Bld-mCnc | 17::07 | [facility] | | | | + + + +--------+ + + + + | Result panel 19 | + + + + + +--------+ + + | Hct VFr.DF | 2025-07-05 | | 39.8 | (missing) | (missing) | | Bld Auto | 17:22:07 | [facility] | | | | + + + +--------+ + + + + | Result panel 20 | + + + + + +--------+ + + | RBC Auto | 2025-07-05 | | 87.1 | (missing) | (missing) | | | 17:22: | [facility] | | | | + + + +--------+ + + + + | Result panel 21 | + + + + + +--------+ + + | MCH RBC Qn | 2025-07-05 | | 29.3 | (missing) | (missing) | | Auto | 17:22:07 | [facility] | | | | + + + +--------+ + + + + | Result panel 22 | + + + + + +--------+ + + | MCHC RBC | 2025-07-05 | | 33.7 | (missing) | (missing) | | Auto-EntMCnc | 17:22:07 | [facility] | | | | + + + +--------+ + + + + | Result panel 23 | + + + + + +-------+ + + | Platelet # | 2025-07-05 | | 177 | (missing) | (missing) | | Bld Auto | 17:22:07 | [facility] | | | | + + + +-------+ + + + + | Result panel 24 | + + + + + +--------+ + + | Neutrophils | 2025-07-05 | | 57.3 | (missing) | (missing) | | NFr Bld | 17::07 | [facility] | | | | | Auto | [facility] | | | | + + + +--------+ + + Social History +--------+ + + | date | description | facility | +--------+ + + Vital Signs + + + +---------+ | date | measurement | value | units | + + + +---------+ | 2025-07-05 00:00 | BMI | 30.5 | kg/m2 | + + + +---------+ | 2025-07-05 00:00 | BP_diastolic | 81 | mmHg | + + + +---------+ | 2025-07-05 00:00 | BP_systolic | 157 | mmHg | + + + +---------+ | 2025-07-05 00:00 | heart_rate | 76 | /min | + + + +---------+ | 2025-07-05 00:00 | height_metric | 152.4 | cm | + + + +---------+ | 2025-07-05 00:00 | height_standard | 60 | in | + + + +---------+ | 2025-07-05 00:00 | o2_saturation | 98 | % | + + + +---------+ | 2025-07-05 00:00 | respiration_rate | 15 | /min | + + + +---------+ | 2025-07-05 00:00 | | 98.2 | F | | | temperature_standar | | | | | d | | | + + + +---------+ | 2025-07-05 00:00 | weight_metric | 70.741 | kg | + + + +---------+ | 2025-07-05 00:00 | weight_standard | 155.956 | lb | + + + +---------+"
--- OUTSIDE RECORDS SUMMARY | 2025-08-13 11:01 | XMS ---
PreManage Notification: JOSÉ MANUEL LUCAS Security Vp Care Management Events No recent Security Events currently on file CRITERIA MET - [facility] - 2 Visits in 30 Days CARE PROVIDERS MARZENA BELTRE Nurse Practitioner: 08/24/2021-Current PHONE: [phone] Vanessa Ziegler Community Health Worker 03/13/2020-Current PHONE: [phone] -[facility]+ Dentist: Network Control Supervisor [facility] PHONE: [phone] -[place]eles- Dentist: Network Control Supervisor Current [facility] Dental [facility] PHONE: [phone] [facility]: [facility] Current FAMILY PHONE: [phone] Cesar has no Care Guidelines for this patient. Darline VISIT COUNT (12 MO.) [address] [facility] . TOTAL 5 NOTE: Visits indicate total known visits. 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 - Pain in right arm - Type 2 diabetes mellitus without complications 07/31/2025 16:02 KATHRYN [facility]egas [place] TYPE: Emergency COMPLAINT: - RT SHOULDER/ARM PAIN DIAGNOSES: - Allergy status to other antibiotic agents - Allergy status to other drugs, medicaments and biological substances - Allergy status to sulfonamides - Essential (primary) hypertension - Nicotine dependence, unspecified, uncomplicated - Other vermin 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 (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 - Radiculopathy, cervical region - Type 2 diabetes mellitus without complications - Weakness 07/05/2025 15:57 KATHRYN Banegas [place] TYPE: Emergency COMPLAINT: - BACK PAIN DIAGNOSES: - Allergy status to other antibiotic agents - Allergy status to other drugs, medicaments and biological substances - Allergy status to sulfonamides - Essential (primary) hypertension - retirement (current) use of insulin - Low back pain, unspecified - Nicotine dependence, unspecified, uncomplicated - Other 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 (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 - Type 2 diabetes mellitus without complications 05/15/2025 13:07 KATHRYN Banegas [place] TYPE: Emergency COMPLAINT: - BACK PAIN DIAGNOSES: - Allergy status to other drugs, medicaments and biological substances - Essential (primary) hypertension - retirement (current) use of insulin - Low back pain, unspecified - Nicotine dependence, unspecified, uncomplicated - Other retirement (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 - Type 2 diabetes mellitus without complications INPATIENT VISIT TRACKING (12 MO.) 11/29/2024 05:44 [facility] TYPE: Surgical Services DIAGNOSES: - Other intervertebral disc displacement, lumbar region - Radiculopathy, lumbar region - Other intervertebral disc degeneration, lumbar region with discogenic back pain only [id number]
[2025-08-13] MEDS ORDERED: CYCLOBENZAPRINE HCL 10 MG TAB PO ONE (12:15)
[2025-08-13] MEDS ORDERED: IBUPROFEN 600 MG TAB PO ONE (12:15)
[2025-08-13] MEDS ORDERED: OXYCODONE/APAP 5/325 TAB PO ONE (12:15)
[2025-08-13 12:32] VITALS: BP 163/86
== END 2025-08-13 13:01 | disposition home or self-care (01) ==
LOC: ED 10:54
DX: M54.2 Cervicalgia (principal); M79.601 Pain in right arm; G89.29 Other chronic pain; I10 Essential (primary) hypertension; E11.9 Type 2 diabetes mellitus without complications; F17.200 Nicotine dependence, unspecified, uncomplicated; Z88.2 Allergy status to sulfonamides; Z88.1 Allergy status to other antibiotic agents; Z79.85 Long-term (current) use of injectable non-insulin antidiabetic drugs; Z79.899 Other long term (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
CPT/HCPCS: 99283; A9270

== ENCOUNTER 2025-08-21 16:01 | Emergency (ER) | payer OTHER ==
[~2025-08-21] VITALS: Ht 152.4 cm; Wt 68.0 kg
--- OUTSIDE RECORDS SUMMARY | ~2025-08-21 | XMS | Continuity of Care Document ---
Demographics + + + | Address | [address] | | | [place] [address] | + + + | Preferred Language | Unknown | + + + | Marital Status | Domestic partner | + + + | Zoroastrianism Affiliation | Unknown | + + + | Race | White | + + + | Ethnic Group | Not or | + + + Author + + + | Author | [facility] | + + + | Organization | [facility] | + + + | Address | [address] | | | [place] [address] | + + + | Phone | | + + + Care Team Providers + + + + | Care Analog Ic Design Engineer Name | Role | Phone | + [...] | | 00:00 | Sulfamethoxazol | [facility] | | | + + + + + + | 2025-07-31 | | [facility] - | Pain | (no severity) | | 00:00 | Sulfamethoxazol | [facility] | | | + + + + + + | 2025-07-05 | Trimethoprim | [facility] - | Pain | (no severity) | | 00:00 | | [facility] | | | + + + + + + | 2025-07-31 | Trimethoprim | [facility] - | Pain | (no severity) | | 00:00 | | [facility] | | | + + + + + + | 2025-07-05 | | [facility] - | Pain | (no severity) | | 00:00 | Sulfamethoxazol | [facility] | | | + + + + + + | 2025-07-31 | | [facility] - | Pain | (no severity) | | 00:00 | Sulfamethoxazol [facility] | | | + + + + + + | 2025-07-05 | Metformin | [facility] - | Diarrhea | (no severity) | | 00:00 | | [facility] | | | + + + + + + | 2025-07-31 | Metformin | [facility] - | Diarrhea [...] + + + + + + | 2025-07-31 | Trimethoprim | [facility] - | Pain [...] + + + + + + | 2025-07-31 | Metformin | [facility] - | Diarrhea [...] + + + + + + | 2025-07-31 | Metformin | [facility] - | Diarrhea [...] + + + + + + | 2025-07-31 | Trimethoprim | [facility] - | Pain | (no severity) | | 00:00 | | [facility] | | | + + + + + + | 2025-07-05 | | [facility] - | Pain | (no severity) | | 00:00 | Sulfamethoxazol | [facility] | | | + + + + + + | 2025-07-31 | | [facility] - | Pain | (no severity) | | 00:00 | Sulfamethoxazol | [facility] | | | + + + + + + Encounters No information. Functional Status No information. Immunizations No information. Medications + + + + | date | description | facility | + + + + | 2025-07-05 00:00 | OXYCODONE | [facility] | | HCL/ACETAMINOPHEN | [facility] | + + + + | 2025-07-05 00:00 | OXYCODONE | [facility] | | | HCL/ACETAMINOPHEN | [facility] | + + + + | 2025-07-31 00:00 | [facility]CODONE [facility] | | | HCL/ACETAMINOPHEN | [facility] | + + + + | (no date) | TIZANIDINE HCL | [facility] | | [facility] | + + + + | (no date) | TIZANIDINE HCL | [facility] | | | | [facility] | + + + + | (no date) | DULAGLUTIDE | [facility] | | | | [facility] | + + + + | (no date) | DULAGLUTIDE | [facility] | | | | [facility] | + + + + | (no date) | Insulin | [facility] | | | GlalynHum.rec.anlog | [facility] | + + + + | (no date) | Insulin | [facility] | | | GlargineHum.recgonzález | [facility] | + + + + | (no date) | AMLODIPINE BESYLATE | [facility] | | | | [facility] | + + + + | (no date) | AMLODIPINE BESYLATE | [facility] | | | | [facility] | + + + + | (no ) | MAGNESIUM OXIDE | [facility] | | | | [facility] | + + + + | (no date) | MAGNESIUM OXIDE | [facility] | | | | [facility] | + + + + | (no ) | Semaglutide | [facility] | | | | [facility] | + + + + | (no date) | Semaglutide | [facility] | | | | [facility] | + + + + | 2025-07-31 00:00 | PANTOPRAZOLE SODIUM | [facility] | | | | [facility] | + + + + | (no ) | GABAPENTIN | [facility] | | | | [facility] | + + + + | (no date) | GABAPENTIN | [facility] | | | | [facility] | + + + + | 2025-07-05 00:00 | predniSONE | [facility] | | | | [facility] | + + + + | 2025-07-05 00:00 | predniSONE [facility] | [facility] | + + + + | 2025-07-31 00:00 | predniSONE | [facility] | | | | [facility] | + + + + | (no date) | PANTOPRAZOLE SODIUM | [facility] | | | | [facility] | + + + + | (no date) | PANTOPRAZOLE SODIUM | [facility] | | | | [facility] | + + + + | (no date) | TIZANIDINE HCL | [facility] | | | | [facility] | + + + + | (no date) | TIZANIDINE HCL | [facility] | | | | [facility] | + + + + | (no date) | ATORVASTATIN CALCIUM | [facility] | | | | [facility] | + + + + | (no date) | ATORVASTATIN CALCIUM | [facility] | | | | [facility] | + + + + | (no date) | VARENICLINE TARTRATE | [facility] | | | [facility] | + + + + | (no date) | VARENICLINE TARTRATE | [facility] | | [facility] | + + + + | (no date) | TRAZODONE HCL | [facility] | [facility] | + + + + | (no date) | TRA[facility]ODONE HCL | [facility] | [facility] | + + + + | (no date) | METFORMIN HCL | [facility] | | | [facility] | + + + + | (no date) | METFORMIN HCL | [facility] | | | [facility] | + + + + | (no date) | METOPROLOL SUCCINATE | [facility] | | | | [facility] | + + + + | (no date) | METOPROLOL SUCCINATE | [facility] | | | | [facility] | + + + + | (no date) | | [facility] | | | LOSARTAN/HYDROCHLOROTHIAZID | [facility] | | | E | | + + + + | (no date) | | [facility] | | | LOSARTAN/HYDROCHLOROTHIAZID | [facility] | | | E | | + + + + | (no date) | LOSARTAN POTASSIUM | [facility] | | | | [facility] | + + + + | (no date) | LOSARTAN POTASSIUM | [facility] | [facility] | + + + + | (no date) | LOSARTAN POTASSIUM | [facility] | | | | [facility] | + + + + | (no date) | LOSARTAN POTASSIUM | [facility] | | | | [facility] | + + + + Problems + + + + | date | description | facility | + + + + | 2025-07-31 00:00 | Cervical radiculopathy | [facility] [...] (missing) | | Auto | 17:22:07 | [facility] | | | | | | | [...] 3.9 | (missing) | (missing) | | [facility] | 17:22:07 | [facility] | | | [...] (missing) | (missing) | | Auto | 17::07 | [facility] | | [...] | (missing) | (missing) | | | 17:22:07 | [facility] | | | | + + + +--------+ + + + + | Result panel 23 | + + + + + +--------+ [...] (missing) | (missing) | | Auto | 17::07 | [facility] | | | | + + + +--------+ + + + + | Result panel 25 | + + + + + +--------+ + + | MCHC RBC | 2025-07-05 | | 33.7 | (missing) | (missing) | | Auto-EntMCnc | 17::07 | [facility] | | | | + + + +--------+ + + + + | Result panel 26 | + + + + + +-------+ + + | Platelet # | 2025-07-05 | | 177 | (missing) | (missing) | | Bld Auto | 17::07 | [facility] | | | | + + + +-------+ + + + + | Result panel 27 | + + + + + +--------+ + + | Neutrophils | 2025-07-05 | | 57.3 | (missing) | (missing) | | NFr Bld | 17:07 | [facility] | | | | | Auto | [facility] | | | | + + + +--------+ + + + + | Result panel 28 | + + + + + +--------+ [...] + + + + | Result panel 29 | + + + + + +-------+ + + | Monocytes | 2025-07-05 | | 6.8 | (missing) | (missing) | | NFr Bld Auto | 17:22:07 | [facility] | | | | + + + +-------+ + + + + | Result panel 30 | + + + + + +-------+ [...] + + + + | Result panel 31 | + + + + + +-------+ [...] + + + + | Result panel 32 | + + + + + +-------+---------+ [...] +-------+---------+ + + + | Result panel 33 | + + + + + +------+---------+ + | BUN | 2025-07-05 | | 15 | mg/dL | (missing) | | SerPl-mCnc | 17:22:07 | [facility] | | | | + + + +------+---------+ + + + | Result panel 34 | + + + + + +--------+ + + | Hct VFr.DF | 2025-07-05 | | 39.8 | (missing) | (missing) | | Bld Auto | 17::07 | [facility] | | | | | | | - | | | | | | [facility] | | | | + + + +--------+ + + + + | Result panel 35 | + + + + + +--------+---------+ + | Creat | 2025-07-05 | | 0.69 | mg/dL | (missing) | | SerPl-mCnc | 17:22:07 | [facility] | | | | + + + +--------+---------+ + + + | Result panel 36 | + + + + + +-------+ + + | eGFRcr | 2025-07-05 | | 110 | (missing) | (missing) | | SerPlBld | 17::07 | [facility] | | | | | CKD-EPI 2020 | [facility] | | | | + + + +-------+ + + + + | Result panel 37 | + + + + + +---------+ [...] + + + + | Result panel 38 | + + + + + +-------+ + + | Sodium | 2025-07-05 | | 141 | (missing) | (missing) | | SerPl-sCnc | 17:22:07 | [facility] | | | | + + + +-------+ + + + + | Result panel 39 | + + + + + +-------+ + + | Potassium | 2025-07-05 | | 3.9 | (missing) | (missing) | | SerPl-sCnc | 17:22:07 | [facility] | | | | + + + +-------+ + + + + | Result panel 40 | + + + + + +-------+ + + | Chloride | 2025-07-05 | | 104 | (missing) | (missing) | | [facility]Pl-[facility] | 17:22:07 | [facility] | | | | + + + +-------+ + + + + | Result panel 41 | + + + + + +------+ + + | CO2 | 2025-07-05 | | 30 | (missing) | (missing) | | SerPl-sCnc | ::07 | [facility] | [facility] | [facility] | | | | + + + +------+ + + + + | Result panel 42 | + + + + + +--------+ + + | Anion Gap | 2025-07-05 | | 10.9 | (missing) | (missing) | | SerPl | ::07 | [facility] | | | | | Calculated.4 | [facility] | | | | + + + +--------+ + + + + | Result panel 43 | + + + + + +-------+---------+ [...] +-------+---------+ + + + | Result panel 44 | + + + + + +--------+ + + | RBC Auto | 2025-07-05 | | 87.1 | (missing) | (missing) | | | 17:22:07 | [facility] | | | | + + + +--------+ + + + + | Result panel 45 | + + + + + +--------+ + + | MCH RBC Qn | 2025-07-05 | | 29.3 | (missing) | (missing) | | Auto | 17::07 | [facility] | | | | + + + +--------+ + + + + | Result panel 46 | + + + + + +--------+ [...] + + + + | Result panel 47 | + + + + + +-------+ [...] + + + + | Result panel 48 | + + + + + +--------+ [...] 155.956 | lb | + + + +---------+ | 2025-07-31 00:00 | BMI | 29.3 | kg/m2 | + + + +---------+ | 2025-07-31 00:00 | BP_diastolic | 89 | mmHg | + + + +---------+ | 2025-07-31 00:00 | BP_systolic | 130 | mmHg | + + + +---------+ | 2025-07-31 00:00 | heart_rate | 88 | /min | + + + +---------+ | 2025-07-31 00:00 | height_metric | 152.4 | cm | + + + +---------+ | 2025-07-31 00:00 | height_standard | 60 | in | + + + +---------+ | 2025-07-31 00:00 | o2_saturation | 98 | % | + + + +---------+ | 2025-07-31 00:00 | respiration_rate | 16 | /min | + + + +---------+ | 2025-07-31 00:00 | | 98.1 | F | | | temperature_standar | | | | | d | | | + + + +---------+ | 2025-07-31 00:00 | weight_metric | 67.999 | kg | + + + +---------+ | 2025-07-31 00:00 | weight_standard | 149.912 | lb | + + + +---------+"
--- OUTSIDE RECORDS SUMMARY | 2025-08-21 16:08 | XMS ---
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 No recent Security Events currently on file CRITERIA MET - 6 ED Visits in 6 Months - [facility] - 2 Visits in 30 Days CARE PROVIDERS MARZENA BELTRE Nurse Practitioner: 08/24/2021-Current PHONE: [phone] Vanessa Ziegler Community Health Worker 03/13/2020-Current PHONE: [phone] -, [facility]+ Dentist: Stem Sizer [facility] PHONE: [phone] -Angeles- Dentist: Stem Sizer Current [facility] PHONE: [phone] [facility]/Center: [facility] Current FAMILY PHONE: [phone] Cesar has no Care Guidelines for this patient. E.DLou VISIT COUNT (12 MO.) 6 [facility] [place] . TOTAL 6 NOTE: Visits indicate total known visits. ED/UCC VISIT TRACKING (12 MO.) 08/21/2025 16:02 [facility] [place] TYPE: Emergency COMPLAINT: - SHOULDER/BACK PAIN 08/13/2025 10:55 [facility] [place] TYPE: Emergency COMPLAINT: - BACK PAIN DIAGNOSES: - Allergy status to other antibiotic agents - Allergy status to sulfonamides - Cervicalgia - Essential (primary) hypertension - Long-term (current) use of injectable non-insulin antidiabetic drugs - Nicotine dependence, unspecified, uncomplicated - Other chronic pain - Other terminal clerk (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 - Pain in right arm - Type 2 diabetes mellitus without complications 08/09/2025 16:06 [facility] [place] TYPE: Emergency COMPLAINT: - RT ARM/NECK PAIN DIAGNOSES: - Allergy status to other antibiotic agents - Allergy status to sulfonamides - Cervicalgia - Essential (primary) hypertension - Long-term (current) use of injectable non-insulin antidiabetic drugs - Nicotine dependence, unspecified, uncomplicated - Other chronic pain - Other detention (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 - Pain in right arm - Type 2 diabetes mellitus without complications 07/31/2025 16:02 [facility] [place] H[facility] [place] TYPE: Emergency COMPLAINT: - RT SHOULDER/ARM PAIN DIAGNOSES: - Allergy status to other antibiotic agents - Allergy status to other drugs, medicaments and biological substances - Allergy status to sulfonamides - Essential (primary) hypertension - Nicotine dependence, unspecified, uncomplicated - Other terminal clerk (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 - Radiculopathy, cervical region - Type 2 diabetes mellitus without complications - Weakness 07/05/2025 15:57 [facility] [place] [facility] [place] TYPE: Emergency COMPLAINT: - BACK PAIN DIAGNOSES: - Allergy status to other antibiotic agents - Allergy status to other drugs, medicaments and biological substances - Allergy status to sulfonamides - Essential (primary) hypertension - 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 - Low back pain, unspecified - Nicotine dependence, unspecified, uncomplicated - Other terminal clerk (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 - Type 2 diabetes mellitus without complications 05/15/2025 13:07 [facility] [place] [facility] Reyn[facility] [place] TYPE: Emergency COMPLAINT: - BACK PAIN DIAGNOSES: - Allergy status to other drugs, medicaments and biological substances - Essential (primary) hypertension - detention (current) use of insulin - Low back pain, unspecified - Nicotine dependence, unspecified, uncomplicated - Other detention (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 - Type 2 diabetes mellitus without complications INPATIENT VISIT TRACKING (12 MO.) [facility] DIAGNOSES: - Other intervertebral disc displacement, lumbar region - Radiculopathy, lumbar region - Other intervertebral disc degeneration, lumbar region with discogenic back pain only [id number]
[2025-08-21 16:47] VITALS: BP 151/82
== END 2025-08-21 16:40 | disposition home or self-care (01) ==
LOC: ED 16:01
DX: M54.2 Cervicalgia (principal); R20.2 Paresthesia of skin; I10 Essential (primary) hypertension; E11.9 Type 2 diabetes mellitus without complications; F17.200 Nicotine dependence, unspecified, uncomplicated; Z88.2 Allergy status to sulfonamides; Z88.1 Allergy status to other antibiotic agents; Z79.85 Long-term (current) use of injectable non-insulin antidiabetic drugs; Z79.899 Other long term (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
CPT/HCPCS: 99283